=== PATIENT | female | born 1945 | race Caucasian/White ===

== ENCOUNTER 2019-10-22 11:00 | Inpatient (IN) | payer OTHER, BC ==
[2019-10-22 11:05] VITALS: BMI 24.8
[2019-10-22] MEDS ORDERED: dilTIAZem HCL 50 MG/10 ML - 10 ML VIAL IVPUSH ONE ×2 (11:23→18:57)
--- NOTE | 2019-10-22 11:23 | PDOC ---
Attending Attestation - Resident Resident Name: Ag Vargas - ED Attending Attestation I have performed the following: I have examined & evaluated the patient, The case was reviewed & discussed with the resident, I agree w/resident's findings & plan, Exceptions are as noted - HPI HPI: 74 yo F history DM, HTN, poss TIA in past presents with SOB, palpitations that started abruptly yesterday. Associated with left-sided chest pressure. Patient refused to come to ED, daughter finally brought her in. Lives at home with daughter. Normally she is independent with her ADLs, but with her symptoms, has been unable to do them. - Physicial Exam PE: GENERAL: Awake, alert, and fully oriented, +moderate respiratory distress HEAD: No signs of trauma EYES: PERRLA, EOMI, sclera anicteric, conjunctiva clear ENT: Auricles normal inspection, hearing grossly normal, nares patent, oropharynx clear without exudates. Moist mucosa NECK: Normal ROM, supple, no lymphadenopathy, JVD, or masses LUNGS: Good air entry B/L, +diffuse crackles B/L, +abdominal retractions HEART: Irregularly irregular, normal S1 and S2, no murmurs, rubs or gallops ABDOMEN: Soft, nontender, normoactive bowel sounds. No guarding, no rebound. No masses EXTREMITIES: Normal range of motion, no edema. No clubbing or cyanosis. No cords, erythema, or tenderness NEUROLOGICAL: Cranial nerves II through XII grossly intact. Normal speech. Motor and sensation intact SKIN: Warm, dry, normal turgor, no rashes or lesions noted. - Medical Decision Making 10/22/19 11:37 Pt arrives in afib with RVR, noted to have extremely elevated BP, signs of acute pulmonary edema. Pt given sublingual nitro, 10mg diltiazem IVP. Labs pending, CXR pending. Will continue to monitor. Heart Score/ECG Review - ECG Impressions Comment:: EKG read 11:15- afib with RVR, [address]/T changes. Discharge - Discharge Information Problems reviewed: Yes Clinical Impression/Diagnosis: New onset atrial fibrillation, Atrial fibrillation with rapid ventricular response, Acute pulmonary edema Anemia Qualifiers: Anemia type: unspecified type Qualified Code(s): D64.9 - Anemia, unspecified Condition: Guarded - Follow up/Referral Referrals: Maddison Vasquez MD [Primary Care Provider] - - Patient Discharge Instructions - Post Discharge Activity
[2019-10-22] MEDS ORDERED: dilTIAZem HCL 125 MG/25 ML - 25 ML VIAL ONE ×2 (11:26→19:00)
[2019-10-22] MEDS ORDERED: NITROGLYCERIN SUBLINGUAL 1/150 0.4 MG TAB ONE ×2 (11:26→19:00)
[2019-10-22] MEDS ORDERED: NITROGLYCERIN SUBLINGUAL 1/150 0.4 MG TAB SL ONE ×2 (11:34→18:57)
--- NOTE | 2019-10-22 11:40 | PDOC ---
History of Present Illness - General Chief Complaint: Shortness of Breath Stated Complaint: SOB/COUGH Time Seen by Provider: 10/22/19 11:09 - History of Present Illness Initial Comments: 10/22/19 11:39 HPI: 74 y/o F with hx of IDDM, HTN, ?TIA presenting with SOB and palpitations since yesterday. Patient reports sudden onset of palpitations with SOB and left sided chest pressure in the morning. Chest pressure was non radiating. SOB worse on exertion. She refused to come in yesterday however this morning her SOB, chest pain and palp worsened and presented to the ED. She denies MACKEY, LH, syncope, abd pain, diaphoresis, dysuria, sick contacts. PMHx: as noted above ROS: as noted SHx: Denies tobacco use; no alcohol use; no rec drugs Allergies: NKDA ROS: GENERAL/CONSTITUTIONAL: No fever or chills. No weakness. HEAD, EYES, EARS, NOSE AND THROAT: No change in vision. No ear pain or discharge. No sore throat. CARDIOVASCULAR: +chest pain and shortness of breath RESPIRATORY: No cough, wheezing, or hemoptysis. GASTROINTESTINAL: No nausea, vomiting, diarrhea or constipation. GENITOURINARY: No dysuria, frequency, or change in urination. MUSCULOSKELETAL: No joint or muscle swelling or pain. No neck or back pain. SKIN: No rash NEUROLOGIC: No headache, vertigo, loss of consciousness, or change in strength/sensation. ENDOCRINE: No increased thirst. No abnormal weight change HEMATOLOGIC/LYMPHATIC: No anemia, easy bleeding, or history of blood clots. ALLERGIC/IMMUNOLOGIC: No hives or skin allergy. PE: GENERAL: Awake, alert, and fully oriented, moderate acute distress HEAD: No signs of trauma, normocephalic, atraumatic EYES: EOMI, sclera anicteric, conjunctiva clear ENT: Auricles normal inspection, hearing grossly normal, nares patent, oropharynx clear without exudates. Moist mucosa NECK: Normal ROM, no lymphadenopathy LUNGS: increased WOB and tachypnea, symmetrical chest rise, clear to auscultation bilaterally, no wheezes, crackles or rhonchi HEART: tachycardic, irregularly irregular rhythm, no murmur, peripheral pulses 2+ and equal bilaterally. ABDOMEN: Soft, nondistended, nontender. No guarding, no rebound. No masses. No CVAT MUSCULOSKELETAL: FROM NEUROLOGICAL: Cranial nerves II through XII grossly intact. Normal speech, stable gait, no focal sensorimotor deficits SKIN: Warm, Dry, normal turgor, no rashes or lesions noted Past History - Medical History Allergies/Adverse Reactions: Allergies Allergy/AdvReac Type Severity Reaction Status Date / Time No Known Allergies Allergy Verified 10/22/19 11:05 Home Medications: Ambulatory Orders Alendronate Sodium [Fosamax] 1 tab PO WEEKLY 10/22/19 Aspirin [ASA -] 81 mg PO DAILY 10/22/19 Carvedilol 12.5 mg PO BID 10/22/19 Enalapril Maleate 5 mg PO DAILY 10/22/19 Gabapentin [Neurontin] 300 mg PO DAILY 10/22/19 Glipizide 10 mg PO DAILY 10/22/19 Insulin Detemir [Levemir Flextouch] 15 unit SQ DAILY 10/22/19 Metformin HCl [Glucophage] 1,000 mg PO DAILY 10/22/19 Ranitidine HCl 300 mg PO BID 10/22/19 Rosuvastatin [Crestor -] 20 mg PO DAILY 10/22/19 Cardiac Disorders: Yes COPD: No Diabetes: Yes HTN: Yes - Surgical History Cholecystectomy: Yes - Psycho-Social/Smoking History Smoking History: Never smoked - Substance Abuse Hx (Audit-C & DAST Scrn) How often the patient has a drink containing alcohol: Never Score: In Men: 4 or > Positive; In Women: 3 or > Positive: 0 Screen Result (Pos requires Nsg. Audit-10AR): Negative *Physical Exam - Vital Signs Last Vital Signs Temp Pulse Resp BP Pulse Ox 98.2 F 144 H 20 190/124 H 97 10/22/19 11:02 10/22/19 11:02 10/22/19 11:02 10/22/19 11:02 10/22/19 11:02 ED Treatment Course - LABORATORY CBC & Chemistry Diagram: 10/22/19 11:30 10/22/19 11:30 - RADIOLOGY Radiology Studies Ordered: Category Date Time Status CXRPORT [CHEST X-RAY PORTABLE*] [RAD] Stat Radiology 10/22/19 11:12 Ordered Medical Decision Making - Medical Decision Making 10/22/19 12:23 74 y/o F with hx of IDDM, HTN, ?TIA presenting with SOB and palpitations since yesterday. HR 140s BP 190/124, AF. PE with tachycardia, tachypnea, increased WOB. EKG with afib with rvr -cbc, cmp, mg, coags, card prof, cxr, bnp, ua -10mg dilt, sl nitro 10/22/19 12:28 HR improved to 80s and BP 140s/90s patient resp status improved Hb 9.8 down from 11.7 4 weeks ago will order FOBT will consult cards for new onset afib with rvr for further recs and AC will admit for new onset afib 10/22/19 13:[address] Brizuela discussed with Dr Brizuela but no clear etiology of thrombocytopenia; Dr Beltran recommending AC Discharge - Discharge Information Problems reviewed: Yes Clinical Impression/Diagnosis: New onset atrial fibrillation, Atrial fibrillation with rapid ventricular response, Acute pulmonary edema, Anemia Condition: Guarded - Follow up/Referral - Patient Discharge Instructions - Post Discharge Activity
[2019-10-22 11:48] LABS: BASO % 0.6 % (0-2.0); EOS % 1.5 % (0-4.5); HEMATOCRIT 29.8 % (32.4-45.2); HEMOGLOBIN 9.8 GM/dL (10.7-15.3); LYMPH % 14.7 % (8-40); MCH 28.5 pg (25.7-33.7); MCHC 32.7 g/dl (32.0-36.0); MEAN CELL VOLUME 87.1 fl (80-96); MEAN PLT VOLUME 11.6 fl (7.5-11.1); MONO % 4.4 % (3.8-10.2); NEUT % 78.8 % (42.8-82.8); PLATELET COUNT 117 K/MM3 (134-434); RBC 3.43 M/mm3 (3.60-5.2); RDW 14.7 % (11.6-15.6); WHITE BLOOD COUNT 6.1 K/mm3 (4.0-10.0)
[2019-10-22 11:56] LABS: INR 1.18 (0.83-1.09); PROTHROMBIN TIME (PATIENT) 13.9 SEC (9.7-13.0)
[2019-10-22 11:58] LABS: ACTIVATED PTT 29.9 SECONDS (25.2-36.5)
[2019-10-22] MEDS ORDERED: dilTIAZem HCL 30 MG TABLET PO ONE (12:05)
[2019-10-22] MEDS ORDERED: dilTIAZem HCL 30 MG TABLET ONE ×2 (12:08→22:26)
[2019-10-22 12:13] LABS: ALBUMIN 3.6 g/dl (3.4-5.0); BILIRUBIN,TOTAL 0.9 mg/dL (0.2-1); BLOOD UREA NITROGEN 18.2 mg/dL (7-18); CALCIUM 8.8 mg/dL (8.5-10.1); MAGNESIUM 2.3 mg/dL (1.8-2.4); POTASSIUM 3.8 mmol/L (3.5-5.1); TOT PROT 7.3 g/dl (6.4-8.2)
[2019-10-22] MEDS ORDERED: FUROSEMIDE 40 MG/4 ML INJECTABLE VIAL IVPUSH ONE ×2 (12:51→12:53)
[2019-10-22] MEDS ORDERED: CARVEDILOL 12.5 MG TABLET (FP) PO ONE (12:56)
[2019-10-22] MEDS ORDERED: FUROSEMIDE 40 MG/4 ML INJECTABLE VIAL ONE (13:40)
[2019-10-22] MEDS ORDERED: CARVEDILOL 12.5 MG TABLET (FP) ONE (13:40)
[2019-10-22 16:12] LABS: URINE APPEARANCE CLEAR; URINE BILIRUBIN NEGATIVE (NEGATIVE); URINE COLOR YELLOW; URINE GLUCOSE (UA) NEGATIVE (NEGATIVE); URINE KETONE NEGATIVE (NEGATIVE); URINE LEUK ESTERASE NEGATIVE (NEGATIVE); URINE NITRITE NEGATIVE (NEGATIVE); URINE PROTEIN NEGATIVE (NEGATIVE)
[2019-10-22] MEDS ORDERED: HEPARIN NA (PORCINE) 5,000 UNITS/ML 1ML VIAL IVPUSH ONE (22:03)
[2019-10-22] MEDS ORDERED: HEPARIN NA (PORCINE) 5,000 UNITS/ML 1ML VIAL IVPUSH PRN ×2 (22:07)
--- NOTE | 2019-10-22 22:11 | HP ---
Admitting History and Physical - Primary Care Physician PCP: Maddison Vasquez - Admission History of Present Illness: Case was d/'w Er physician/ Resident In summary== Per Er notes 74 yo F history DM, HTN, possible TIA in past presents with SOB, palpitations that started abruptly yesterday. Associated with left-sided chest pressure. Patient refused to come to ED, daughter finally brought her in. Lives at home with daughter. Normally she is independent with her ADLs, but with her symptoms, has been unable to do them. pt found to be in rapid afib/ Pulmonary Edema and uncontrolled htn . Treated with i/v cardizem/ lasix/ also started on bipapa for respiratory distress pt will be admitted in tele History Source: Medical Record - Smoking History Smoking history: Never smoked Home Medications - Allergies Allergies/Adverse Reactions: Allergies Allergy/AdvReac Type Severity Reaction Status Date / Time No Known Allergies Allergy Verified 10/22/19 11:05 - Home Medications Home Medications: Ambulatory Orders Alendronate Sodium [Fosamax] 1 tab PO WEEKLY 10/22/19 Aspirin [ASA -] 81 mg PO DAILY 10/22/19 Carvedilol 12.5 mg PO BID 10/22/19 Enalapril Maleate 5 mg PO DAILY 10/22/19 Gabapentin [Neurontin] 300 mg PO DAILY 10/22/19 Glipizide 10 mg PO DAILY 10/22/19 Insulin Detemir [Levemir Flextouch] 15 unit SQ DAILY 10/22/19 Metformin HCl [Glucophage] 1,000 mg PO DAILY 10/22/19 Ranitidine HCl 300 mg PO BID 10/22/19 Rosuvastatin [Crestor -] 20 mg PO DAILY 10/22/19 Review of Systems Findings/Remarks: see [facility] [place] Physical Examination Vital Signs: Vital Signs Temperature 98.6 F 10/22/19 18:54 Pulse Rate 83 10/22/19 19:20 Respiratory Rate 22 H 10/22/19 19:20 Blood Pressure 168/91 10/22/19 19:20 O2 Sat by Pulse Oximetry (%) 99 10/22/19 19:39 Findings/Remarks: As per ER Physicians Labs: CBC, BMP 10/22/19 11:30 10/22/19 11:30 Imaging - Results Chest X-ray: Report Reviewed EKG: Report Reviewed Problem List - Problems (1) Thrombocytopenia Code(s): D69.6 - THROMBOCYTOPENIA, UNSPECIFIED (2) Acute pulmonary edema Code(s): J81.0 - ACUTE PULMONARY EDEMA (3) Anemia Code(s): D64.9 - ANEMIA, UNSPECIFIED Qualifiers: Anemia type: unspecified type Qualified Code(s): D64.9 - Anemia, unspecified (4) Atrial fibrillation with rapid ventricular response Code(s): I48.91 - UNSPECIFIED ATRIAL FIBRILLATION (5) New onset atrial fibrillation Code(s): I48.91 - UNSPECIFIED ATRIAL FIBRILLATION Assessment/Plan Monitor on tele Cardiology consult-- Already called by ED Start on Po cardizem Will start on Heparin drip also Will follow Condition jonded
[2019-10-22] MEDS ORDERED: HEPARIN NA (PORCINE) 5,000 UNITS/ML 1ML VIAL ONE (22:26)
[2019-10-22] MEDS ORDERED: HEPARIN INFUSION - 25,000 UNITS/500 ML INFUS.BAG IVPB ONE (22:26)
[2019-10-22] MEDS: HEPARIN SOD,PORK IN 0.45% NACL 25,000 UNIT/500 ML INFUS.BAG IVPB SCH (22:43)
[2019-10-22] MEDS: INSULIN SLIDING SCALE (NOVOLOG) 1 VIAL SQ SCH (22:43)
[2019-10-22] MEDS: dilTIAZem HCL 30 MG TABLET PO SCH (22:43)
[2019-10-23] MEDS ORDERED: FUROSEMIDE 40 MG/4 ML INJECTABLE VIAL ONE ×2 (04:06→13:38)
[2019-10-23] MEDS ORDERED: dilTIAZem HCL 30 MG TABLET ONE ×2 (04:06→13:37)
[2019-10-23] MEDS: FUROSEMIDE 40 MG/4 ML INJECTABLE VIAL IVPB SCH ×2 (05:20→13:45)
[2019-10-23] MEDS: dilTIAZem HCL 30 MG TABLET PO SCH ×3 (05:20→21:37)
[2019-10-23 05:23] LABS: EOS % 2.3 % (0-4.5); HEMATOCRIT 31.3 % (32.4-45.2); HEMOGLOBIN 10.4 GM/dL (10.7-15.3); LYMPH % 25.9 % (8-40); MCH 28.8 pg (25.7-33.7); MCHC 33.3 g/dl (32.0-36.0); MEAN CELL VOLUME 86.6 fl (80-96); MEAN PLT VOLUME 11.6 fl (7.5-11.1); MONO % 4.8 % (3.8-10.2); PLATELET COUNT 143 K/MM3 (134-434); RBC 3.61 M/mm3 (3.60-5.2); RDW 14.9 % (11.6-15.6); WHITE BLOOD COUNT 6.4 K/mm3 (4.0-10.0)
[2019-10-23 05:55] LABS: POTASSIUM 3.6 mmol/L (3.5-5.1)
[2019-10-23 06:35] LABS: ALBUMIN 3.5 g/dl (3.4-5.0); BILIRUBIN,TOTAL 0.7 mg/dL (0.2-1); CALCIUM 8.7 mg/dL (8.5-10.1); CREATININE 1.2 mg/dL (0.55-1.3); MAGNESIUM 2.1 mg/dL (1.8-2.4); TOT PROT 7.2 g/dl (6.4-8.2)
[2019-10-23] MEDS: INSULIN SLIDING SCALE (NOVOLOG) 1 VIAL SQ SCH ×4 (08:09→21:42)
[2019-10-23] MEDS ORDERED: LISINOPRIL 5 MG TABLET (FP) ONE (08:29)
[2019-10-23] MEDS: LISINOPRIL 10 MG TABLET (FP) PO SCH (09:00)
--- NOTE | 2019-10-23 09:04 | CON.CARD ---
Consult Consult Specialty:: Cardiology Referred by:: Juan Brizuela MD Reason for Consultation:: Rapid afib, CHF - History of Present Illness Chief Complaint: Chest pain, dyspnea, cough History of Present Illness: HPI: 74 y/o F with hx of IDDM, HTN, ?TIA presenting with SOB and palpitations since yesterday. Patient reports sudden onset of palpitations with SOB and left sided chest pressure in the morning. Chest pressure was non radiating. SOB worse on exertion. She refused to come in yesterday however this morning her SOB, chest pain and palp worsened and presented to the ED. She denies MACKEY, LH, syncope, abd pain, diaphoresis, dysuria, sick contacts. Last office visit May 2018. PMHx: as noted above ROS: as noted SHx: Denies tobacco use; no alcohol use; no rec drugs Allergies: NKDA - History Source History Provided By: Patient Limitations to Obtaining History: No Limitations - Smoking History Smoking history: Never smoked Home Medications - Allergies Allergies/Adverse Reactions: Allergies Allergy/AdvReac Type Severity Reaction Status Date / Time No Known Allergies Allergy Verified 10/22/19 11:05 - Home Medications Home Medications: Ambulatory Orders Alendronate Sodium [Fosamax] 1 tab PO WEEKLY 10/22/19 Aspirin [ASA -] 81 mg PO DAILY 10/22/19 Carvedilol 12.5 mg PO BID 10/22/19 Enalapril Maleate 5 mg PO DAILY 10/22/19 Gabapentin [Neurontin] 300 mg PO DAILY 10/22/19 Glipizide 10 mg PO DAILY 10/22/19 Insulin Detemir [Levemir Flextouch] 15 unit SQ DAILY 10/22/19 Metformin HCl [Glucophage] 1,000 mg PO DAILY 10/22/19 Ranitidine HCl 300 mg PO BID 10/22/19 Rosuvastatin [Crestor -] 20 mg PO DAILY 10/22/19 Vital Signs: Vital Signs Temperature 98.6 F 10/22/19 18:54 Pulse Rate 91 H 10/23/19 07:59 Respiratory Rate 22 H 10/23/19 07:59 Blood Pressure 181/86 H 10/23/19 07:59 O2 Sat by Pulse Oximetry (%) 100 10/23/19 08:49 - Other Data Labs, Other Data: CBC, BMP 10/23/19 05:11 10/23/19 05:11 INR, PTT INR 1.18 (0.83-1.09) H 10/22/19 11:30 Troponin, BNP 10/22/19 10/23/19 11:30 05:11 Troponin I 0.06 H 0.05 B-Natriuretic Peptide 3653.0 H Troponin, BNP 10/22/19 10/23/19 11:30 05:11 Troponin I 0.06 H 0.05 B-Natriuretic Peptide 3653.0 H Imaging - Results Chest X-ray: Report Reviewed (Congestion) Assessment/Plan 10/22/19 11:37 Pt arrives in afib with RVR, noted to have extremely elevated BP, signs of acute pulmonary edema. Pt given sublingual nitro, 10mg diltiazem IVP. Labs pending, CXR pending. Will continue to monitor. Heart Score/ECG Review - ECG Impressions Comment:: EKG read 11:15- afib with RVR, [address]/T changes. Alendronate Sodium [Fosamax] 1 tab PO WEEKLY 10/22/19 Aspirin [ASA -] 81 mg PO DAILY 10/22/19 Carvedilol 12.5 mg PO BID 10/22/19 Enalapril Maleate 5 mg PO DAILY 10/22/19 Gabapentin [Neurontin] 300 mg PO DAILY 10/22/19 Glipizide 10 mg PO DAILY 10/22/19 Insulin Detemir [Levemir Flextouch] 15 unit SQ DAILY 10/22/19 Metformin HCl [Glucophage] 1,000 mg PO DAILY 10/22/19 Ranitidine HCl 300 mg PO BID 10/22/19 Rosuvastatin [Crestor -] 20 mg PO DAILY 10/22/19
[2019-10-23] MEDS ORDERED: CARVEDILOL 12.5 MG TABLET (FP) ONE (10:02)
[2019-10-23] MEDS: INSULIN (LEVEMIR) 100 UNITS/ML UNITS SQ SCH (10:07)
[2019-10-23] MEDS: CARVEDILOL 12.5 MG TABLET (FP) PO SCH ×2 (10:07→21:37)
--- NOTE | 2019-10-23 11:19 | EKG ---
Test Reason : Blood Pressure : / mmHG Vent. Rate : 139 BPM Atrial Rate : 147 BPM P-R Int : 000 ms QRS Dur : 096 ms QT Int : 336 ms P-R-T Axes : 000 049 227 degrees QTc Int : 511 ms ATRIAL FIBRILLATION WITH RAPID VENTRICULAR RESPONSE NONSPECIFIC ST AND T WAVE ABNORMALITY ABNORMAL ECG NO PREVIOUS ECGS AVAILABLE Confirmed by MINDY PACHECO MD ([id number]) on 10/23/2019 11:19:38 AM Referred By: Confirmed By:MINDY PACHECO MD
--- NOTE | 2019-10-23 12:18 | PN ---
Progress Note, Physician History of Present Illness: Pt seen/ examined in Er Chart reviewed Events noted I started on BB also this morning as BP was very high last night- Pt feels much better On N/C oxygen now On questioning- pt reports h/o chf/ Pul. Edema few yrs ago in P.R -- says was hospitalized for 7 days denies CP - Current Medication List Current Medications: Active Medications Carvedilol (Coreg -) 12.5 mg PO BID [facility] Last Admin: 10/23/19 10:07 Dose: 12.5 mg Documented by: Diltiazem HCl (Cardizem -) 30 mg PO TID [facility] Last Admin: 10/23/19 05:20 Dose: 30 mg Documented by: Furosemide (Lasix Injection -) 40 mg IVPB BID@0600,1400 [facility] Last Admin: 10/23/19 05:20 Dose: 40 mg Documented by: Heparin Sodium (Porcine) (Heparin -) 1,000 unit IVPUSH PRN PRN PRN Reason: Heparin Heparin Sodium (Porcine) (Heparin -) 5,000 unit IVPUSH PRN PRN PRN Reason: Heparin HEPARIN SOD,PORK IN 0.45% NACL (Heparin-1/2ns 25,000 Units/500) 25,000 unit in 500 mls @ 16 mls/hr IVPB TITR [facility]; Protocol Last Admin: 10/22/19 22:43 Dose: 800 units/hr, 16 mls/hr Documented by: Insulin Aspart (Novolog Vial Sliding Scale -) 1 vial SQ ACHS [facility]; Protocol Last Admin: 10/23/19 12:09 Dose: 2 unit Documented by: Insulin Detemir (Levemir Vial) 15 units SQ DAILY [facility] Last Admin: 10/23/19 10:07 Dose: 15 unit Documented by: Lisinopril (Prinivil) 10 mg PO DAILY [facility] Last Admin: 10/23/19 09:00 Dose: 10 mg Documented by: Rosuvastatin Calcium (Crestor -) 20 mg PO [facility] - Objective Vital Signs: Vital Signs Temperature 98.6 F 10/22/19 18:54 Pulse Rate 91 H 10/23/19 09:55 Respiratory Rate 20 10/23/19 09:55 Blood Pressure 165/90 10/23/19 09:55 O2 Sat by Pulse Oximetry (%) 100 10/23/19 09:55 Constitutional: Yes: No Distress, Calm Neck: Yes: Supple Cardiovascular: Yes: Pulse Irregular Respiratory: Yes: Diminished Gastrointestinal: Yes: Soft Edema: No Neurological: Yes: Alert Labs: CBC, BMP 10/23/19 05:11 10/23/19 05:11 INR, PTT INR 1.18 (0.83-1.09) H 10/22/19 11:30 Problem List - Problems (1) Acute pulmonary edema Code(s): J81.0 - ACUTE PULMONARY EDEMA (2) Thrombocytopenia Code(s): D69.6 - THROMBOCYTOPENIA, UNSPECIFIED (3) Anemia Code(s): D64.9 - ANEMIA, UNSPECIFIED Qualifiers: Anemia type: unspecified type Qualified Code(s): D64.9 - Anemia, unspecified (4) Atrial fibrillation with rapid ventricular response Code(s): I48.91 - UNSPECIFIED ATRIAL FIBRILLATION (5) New onset atrial fibrillation Code(s): I48.91 - UNSPECIFIED ATRIAL FIBRILLATION Assessment/Plan clinically better continue present care echo cardiology on case. monitor bp condition better but gaurded Heparin drip-- Monitor Will follow
[2019-10-23] MEDS ORDERED: PT OWN MED DRAWER 7, Y5N ONE ×2 (14:23→21:41)
--- NOTE | 2019-10-23 15:20 | ECHO ---
Name: KAMILLA AKERSMARIA TERESAJose Exam:Adult Echocardiogram Study Date: 10/23/2019 11:22 AM Age: 74 yrs Reason For Study: CHF Height: 62 in Weight: 136 lb BSA: 1.6 m2 MMode/2D Measurements & Calculations IVSd: 1.3 cm Ao root diam: 2.8 cm LVIDd: 4.9 cm LA dimension: 3.4 cm LVIDs: 2.6 cm LVPWd: 0.90 cm EDV(Teich): 112.1 ml LVOT diam: 2.0 cm ESV(Teich): 24.2 ml LAV (MOD-bp): 68.5 ml Doppler Measurements & Calculations MV E max rony: 141.0 cm/sec Ao V2 max: 113.6 cm/sec MV A max rony: 51.4 cm/sec Ao max P.2 mmHg MV E/A: 2.7 MV dec time: 0.10 sec ROSA(V,D): 1.7 cm2 LV V1 max P.5 mmHg MR max rony: 490.0 cm/sec LV V1 max: 61.3 cm/sec MR max P.4 mmHg TR max rony: 328.1 cm/sec PA V2 max: 90.2 cm/sec TR max P.3 mmHg PA max P.3 mmHg Med Peak E' Rony: 5.4 cm/sec PI Vmax: 136.2 cm/sec Med E/e': 25.9 Lat Peak E' Rony: 6.6 cm/sec Lat E/e': 21.2 Procedure A complete two-dimensional transthoracic echocardiogram was performed (2D, M-mode, Doppler and color flow Doppler). Left Ventricle The left ventricle is normal in size. There is mild concentric left ventricular hypertrophy. Left nichol tricular systolic function is normal. Ejection Fraction = 55-60%. No regional wall motion abnormalities noted. Right Ventricle The right ventricle is normal size. The right ventricular systolic function is normal. Atria The left atrium is mildly dilated. Right atrial size is normal. Mitral Valve There is mild mitral annular calcification. There is mild to moderate mitral regurgitation. Tricuspid Valve The tricuspid valve is normal in structure and function. There is mild to moderate tricuspid regurgit ation. PASP is at least 55 mmHg if RA pressure is assumed 3 mmHg. Aortic Valve There is mild aortic sclerosis.;. No aortic regurgitation is present. Pulmonic Valve The pulmonic valve is not well visualized. Great Vessels The aortic root is normal size. Pericardium/Pleura There is no pericardial effusion. Interpretation Summary The left ventricle is normal in size. There is mild concentric left ventricular hypertrophy. No regional wall motion abnormalities noted. Left ventricular systolic function is normal. Ejection Fraction = 55-60%. The left atrium is mildly dilated. There is mild mitral annular calcification. There is mild to moderate mitral regurgitation. There is mild to moderate tricuspid regurgitation. PASP is at least 55 mmHg if RA pressure is assumed 3 mmHg There is mild aortic sclerosis. There is no pericardial effusion. Vern Smith MD 10/23/2019 03:19 PM
--- NOTE | 2019-10-23 16:07 | CON.CARD ---
Consult Consult Specialty:: Cardiology - History of Present Illness History of Present Illness: 74 yo F history DM, HTN, possible TIA in past presents with SOB, palpitations that started abruptly yesterday. Associated with left-sided chest pressure. Patient refused to come to ED, daughter finally brought her in. Lives at home with daughter. Normally she is independent with her ADLs, but with her symptoms, has been unable to do them. pt found to be in rapid afib/ Pulmonary Edema and uncontrolled htn . Treated with i/v cardizem/ lasix/ also started on bipapa for respiratory distress pt will be admitted in tele - History Source History Provided By: Patient, Medical Record - Past Medical History Cardio/Vascular: Yes: AFIB, HTN - Smoking History Smoking history: Never smoked Home Medications - Allergies Allergies/Adverse Reactions: Allergies Allergy/AdvReac Type Severity Reaction Status Date / Time No Known Allergies Allergy Verified 10/22/19 11:05 - Home Medications Home Medications: Ambulatory Orders Alendronate Sodium [Fosamax] 1 tab PO WEEKLY 10/22/19 Aspirin [ASA -] 81 mg PO DAILY 10/22/19 Carvedilol 12.5 mg PO BID 10/22/19 Enalapril Maleate 5 mg PO DAILY 10/22/19 Gabapentin [Neurontin] 300 mg PO DAILY 10/22/19 Glipizide 10 mg PO DAILY 10/22/19 Insulin Detemir [Levemir Flextouch] 15 unit SQ DAILY 10/22/19 Metformin HCl [Glucophage] 1,000 mg PO DAILY 10/22/19 Ranitidine HCl 300 mg PO BID 10/22/19 Rosuvastatin [Crestor -] 20 mg PO DAILY 10/22/19 Review of Systems - Review of Systems Constitutional: reports: No Symptoms Eyes: reports: No Symptoms HENT: reports: No Symptoms Neck: reports: No Symptoms Cardiovascular: reports: Palpitations Respiratory: reports: SOB, SOB on Exertion Gastrointestinal: reports: No Symptoms Genitourinary: reports: No Symptoms Breasts: reports: No Symptoms Reported Musculoskeletal: reports: No Symptoms Integumentary: reports: No Symptoms Neurological: reports: No Symptoms Endocrine: reports: No Symptoms Hematology/Lymphatic: reports: No Symptoms Psychiatric: reports: No Symptoms Vital Signs: Vital Signs Temperature 98.2 F 10/23/19 15:00 Pulse Rate 100 H 10/23/19 15:00 Respiratory Rate 20 08/31/20 15:00 Blood Pressure 145/79 10/23/19 15:33 O2 Sat by Pulse Oximetry (%) 93 L 10/23/19 15:00 Constitutional: Yes: Well Nourished, No Distress, Calm Eyes: Yes: WNL, Conjunctiva Clear, EOM Intact HENT: Yes: WNL, Atraumatic, Normocephalic Neck: Yes: WNL, Supple, Trachea Midline Respiratory: Yes: WNL, Regular, CTA Bilaterally Gastrointestinal: Yes: WNL, Normal Bowel Sounds Renal/: Yes: WNL Cardiovascular: Yes: WNL, Regular Rate and Rhythm Heart Sounds: Yes: S1, S2 Musculoskeletal: Yes: WNL Extremities: Yes: WNL Integumentary: Yes: WNL Neurological: Yes: WNL, Alert, Oriented ...Motor Strength: WNL Psychiatric: Yes: WNL, Alert, Oriented - Other Data Labs, Other Data: CBC, BMP 10/23/19 05:11 10/23/19 05:11 INR, PTT INR 1.18 (0.83-1.09) H 10/22/19 11:30 Troponin, BNP 10/23/19 05:11 Troponin I 0.05 Troponin, BNP 10/23/19 05:11 Troponin I 0.05 Imaging - Results Chest X-ray: Image Reviewed (chf) EKG: Image Reviewed (af rvr) Problem List - Problems (1) Acute pulmonary edema Code(s): J81.0 - ACUTE PULMONARY EDEMA (2) Anemia Code(s): D64.9 - ANEMIA, UNSPECIFIED Qualifiers: Anemia type: unspecified type Qualified Code(s): D64.9 - Anemia, unspecified (3) Atrial fibrillation with rapid ventricular response Code(s): I48.91 - UNSPECIFIED ATRIAL FIBRILLATION (4) New onset atrial fibrillation Code(s): I48.91 - UNSPECIFIED ATRIAL FIBRILLATION (5) Thrombocytopenia Code(s): D69.6 - THROMBOCYTOPENIA, UNSPECIFIED Assessment/Plan Imp; AF RVR CHF Acute pulmonary edema HTN DM Pulmonary HTN Nl EF mild to moderate MR Plan; IV lasix AC with IV Heparin until cardiac w/u is done than NOACs. rate control bb and Cardizem MIBI stress test when stable.
[2019-10-23] MEDS: ROSUVASTATIN CA 20 MG TABLET (FP) PO SCH (21:37)
[2019-10-23] MEDS: HEPARIN SOD,PORK IN 0.45% NACL 25,000 UNIT/500 ML INFUS.BAG IVPB SCH (22:59)
[2019-10-24] MEDS: FUROSEMIDE 40 MG/4 ML INJECTABLE VIAL IVPB SCH ×2 (05:49→14:04)
[2019-10-24] MEDS: dilTIAZem HCL 30 MG TABLET PO SCH ×3 (05:49→21:08)
[2019-10-24] MEDS: INSULIN SLIDING SCALE (NOVOLOG) 1 VIAL SQ SCH ×4 (06:11→21:09)
[2019-10-24 07:22] LABS: HEMATOCRIT 29.7 % (32.4-45.2); HEMOGLOBIN 9.9 GM/dL (10.7-15.3); MCH 28.8 pg (25.7-33.7); MCHC 33.4 g/dl (32.0-36.0); MEAN CELL VOLUME 86.3 fl (80-96); MEAN PLT VOLUME 11.9 fl (7.5-11.1); PLATELET COUNT 146 K/MM3 (134-434); RBC 3.45 M/mm3 (3.60-5.2); RDW 14.6 % (11.6-15.6)
[2019-10-24] MEDS: LISINOPRIL 10 MG TABLET (FP) PO SCH (09:09)
[2019-10-24] MEDS: INSULIN (LEVEMIR) 100 UNITS/ML UNITS SQ SCH (09:10)
[2019-10-24] MEDS: CARVEDILOL 12.5 MG TABLET (FP) PO SCH ×2 (09:10→21:08)
--- NOTE | 2019-10-24 10:28 | PN ---
Progress Note, Physician Chief Complaint: Feels better Not in distress History of Present Illness: Patient was seen by Dr Fernandez yesterday but found that patient had seen Dr/ Mikal Hauser in the office. Patient was seen and examined. Awake and alert. Chart was reviewed - Current Medication List Current Medications: Active Medications Carvedilol (Coreg -) 12.5 mg PO BID [facility] Last Admin: 10/24/19 09:10 Dose: 12.5 mg Documented by: Diltiazem HCl (Cardizem -) 30 mg PO TID [facility] Last Admin: 10/24/19 05:49 Dose: 30 mg Documented by: Furosemide (Lasix Injection -) 40 mg IVPB BID@0600,1400 [facility] Last Admin: 10/24/19 05:49 Dose: 40 mg Documented by: Heparin Sodium (Porcine) (Heparin -) 1,000 unit IVPUSH PRN PRN PRN Reason: Heparin Heparin Sodium (Porcine) (Heparin -) 5,000 unit IVPUSH PRN PRN PRN Reason: Heparin HEPARIN SOD,PORK IN 0.45% NACL (Heparin-1/2ns 25,000 Units/500) 25,000 unit in 500 mls @ 16 mls/hr IVPB TITR [facility]; Protocol Last Admin: 10/23/19 22:59 Dose: 800 units/hr, 16 mls/hr Documented by: Insulin Aspart (Novolog Vial Sliding Scale -) 1 vial SQ ACHS [facility]; Protocol Last Admin: 10/24/19 06:11 Dose: Not Given Documented by: Insulin Detemir (Levemir Vial) 15 units SQ DAILY [facility] Last Admin: 10/24/19 09:10 Dose: 15 unit Documented by: Lisinopril (Prinivil) 10 mg PO DAILY [facility] Last Admin: 10/24/19 09:09 Dose: 10 mg Documented by: Rosuvastatin Calcium (Crestor -) 20 mg PO HS [facility] Last Admin: 10/23/19 21:37 Dose: 20 mg Documented by: - Objective Vital Signs: Vital Signs Temperature 97.9 F 10/24/19 09:13 Pulse Rate 92 H 10/24/19 09:13 Respiratory Rate 20 10/24/19 09:13 Blood Pressure 147/91 10/24/19 09:13 O2 Sat by Pulse Oximetry (%) 100 10/24/19 09:13 Eyes: Yes: PERRL HENT: Yes: Atraumatic Neck: Yes: Supple Cardiovascular: Yes: Pulse Irregular, S1, S2 Respiratory: Yes: Diminished Gastrointestinal: Yes: Normal Bowel Sounds, Soft. No: Tenderness Edema: No Additional Findings/Remarks: - Review of Systems Constitutional: denies: Chills, Fever Cardiovascular: denies Palpitations, (+) Shortness of Breath. denies: Chest Pain Respiratory: reports: SOB. denies: Cough, Hemoptysis, Orthopnea, PND, SOB on Exertion, Wheezing Gastrointestinal: denies: Abdominal Pain, Constipation, Diarrhea, Melena, Nausea, Rectal Bleeding, Vomiting Genitourinary: denies: Dysuria, Hematuria Neurological: denies: Dizziness, Headache, Seizure, Syncope Labs: CBC, BMP 10/24/19 05:54 10/23/19 05:11 Problem List - Problems (1) HTN (hypertension) Code(s): I10 - ESSENTIAL (PRIMARY) HYPERTENSION (2) Hypercholesterolemia Code(s): E78.00 - PURE HYPERCHOLESTEROLEMIA, UNSPECIFIED (3) Pulmonary HTN Code(s): I27.20 - PULMONARY HYPERTENSION, UNSPECIFIED (4) Anemia Code(s): D64.9 - ANEMIA, UNSPECIFIED Qualifiers: Anemia type: unspecified type Qualified Code(s): D64.9 - Anemia, unspecified (5) New onset atrial fibrillation Code(s): I48.91 - UNSPECIFIED ATRIAL FIBRILLATION Assessment/Plan 1. Atrial fibrillation, ? new onset [id number] score of 5 2. HTN 3. DM 4. 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 Acute on chronic LV failure ?diastolic PLAN: 1. Currently on Heparin protocol, but may discontinue and start Eliquis 5 mg BID 2. Continue Carvedilol 12.5 mg BID and Prinivil 10 mg QD 3. Cardizem 30 mg TID for added rate control 4. Rosuvastatin 20 mg QHS 5. Echocardiography result noted 6. Furosemide 40 mg IV BID and monitor renal function and electrolytes 7. If patient remains in AF, may consider LASHAWN guided synchronized cardioversion at a later time 8. Further cardiac work up can be done as outpatient Vern Smith MD
--- NOTE | 2019-10-24 10:38 | EKG ---
Test Reason : Blood Pressure : / mmHG Vent. Rate : 088 BPM Atrial Rate : 107 BPM P-R Int : 000 ms QRS Dur : 102 ms QT Int : 406 ms P-R-T Axes : 000 006 134 degrees QTc Int : 491 ms POOR DATA QUALITY, INTERPRETATION MAY BE ADVERSELY AFFECTED ATRIAL FIBRILLATION ABNORMAL ECG WHEN COMPARED WITH ECG OF 22-OCT-2019 11:11, VENT. RATE HAS DECREASED BY [address] NO LONGER DEPRESSED IN INFERIOR LEADS NONSPECIFIC T WAVE ABNORMALITY, IMPROVED IN INFERIOR LEADS T WAVE INVERSION NOW EVIDENT IN LATERAL LEADS Confirmed by Carlos Alberto Ash MD ([id number]) on 10/24/2019 10:37:57 AM Referred By: HOLLY FUNEZ Confirmed By:Carlos Alberto Ash MD
[2019-10-24] MEDS: APIXABAN 5 MG TABLET PO SCH ×2 (11:55→21:09)
[2019-10-24] MEDS ORDERED: INSULIN (LEVEMIR) 100 UNITS/ML UNITS SQ SCH ×2 (13:36→13:45)
--- NOTE | 2019-10-24 14:28 | PN ---
Progress Note (short form) - Note Progress Note: events noted no chest pain no sob Vital Signs - 24 hr 10/23/19 10/23/19 10/23/19 14:40 15:00 15:33 Temperature 98.2 F Pulse Rate 100 H Respiratory 20 Rate Blood Pressure 164/101 H 145/79 O2 Sat by Pulse 98 93 L Oximetry (%) 10/23/19 10/23/19 10/23/19 17:00 18:00 20:19 Temperature 98.2 F Pulse Rate 97 H Respiratory 20 19 Rate Blood Pressure 168/93 O2 Sat by Pulse 96 98 97 Oximetry (%) 10/23/19 10/24/19 10/24/19 21:00 02:00 06:00 Temperature 98.3 F 97.5 F L 97.7 F Pulse Rate 83 72 87 Respiratory 16 18 18 Rate Blood Pressure 157/80 153/88 147/90 O2 Sat by Pulse 100 100 100 Oximetry (%) 10/24/19 10/24/19 08:30 09:13 Temperature 97.9 F Pulse Rate 92 H Respiratory 18 20 Rate Blood Pressure 147/91 O2 Sat by Pulse 100 Oximetry (%) Current Medications Generic Name Dose Route Start Last Admin Trade Name Freq PRN Reason Stop Dose Admin Apixaban 5 mg 10/24/19 11:15 10/24/19 11:55 Eliquis - PO 5 mg BID [facility] Administration Carvedilol 12.5 mg 10/23/19 10:00 10/24/19 09:10 Coreg - PO 12.5 mg BID GE[facility]NA Administration Diltiazem HCl 30 mg 10/22/19 22:15 10/24/19 14:08 Cardizem - PO 30 mg TID [facility] Administration Furosemide 40 mg 10/23/19 06:00 10/24/19 14:04 Lasix Injection - IVPB 40 mg BID@0600,1400 [facility] Administration Insulin Aspart 1 vial 10/22/19 22:00 10/24/19 11:55 Novolog Vial Sliding Scale - SQ 4 unit ACHS ON LICENSE OF [facility] Administration Protocol Insulin Detemir 16 units 10/25/19 10:00 Levemir Vial SQ DAILY [facility] Lisinopril 10 mg 10/23/19 10:00 10/24/19 09:09 Prinivil PO 10 mg DAILY [facility] Administration Rosuvastatin Calcium 20 mg 10/23/19 22:00 10/23/19 21:37 Crestor - PO 20 mg HS [facility] Administration Laboratory Results - last 24 hr 10/23/19 10/24/19 10/24/19 21:39 05:48 05:54 WBC 5.0 RBC 3.45 L Hgb 9.9 L Hct 29.7 L MCV 86.3 MCH 28.8 MCHC 33.4 RDW 14.6 Plt Count 146 MPV 11.9 H PTT (Actin FS) POC Glucometer 114 113 10/24/19 10/24/19 10/24/19 05:54 09:08 11:52 WBC RBC Hgb Hct MCV MCH MCHC RDW Plt Count MPV PTT (Actin FS) 56.5 H POC Glucometer 158 227 S1 S2 Irregular Lungs decreased Abd- soft, NT no edema PLAN off heparin gtt On eliquis now continue with Lasix BID check renal function rate control with coreg Problem List - Problems (1) Acute pulmonary edema Code(s): J81.0 - ACUTE PULMONARY EDEMA (2) Atrial fibrillation with rapid ventricular response Code(s): I48.91 - UNSPECIFIED ATRIAL FIBRILLATION (3) HTN (hypertension) Code(s): I10 - ESSENTIAL (PRIMARY) HYPERTENSION (4) Hypercholesterolemia Code(s): E78.00 - PURE HYPERCHOLESTEROLEMIA, UNSPECIFIED (5) Pulmonary HTN Code(s): I27.20 - PULMONARY HYPERTENSION, UNSPECIFIED
[2019-10-24] MEDS: ROSUVASTATIN CA 20 MG TABLET (FP) PO SCH (21:08)
[2019-10-25] MEDS: dilTIAZem HCL 30 MG TABLET PO SCH (06:27)
[2019-10-25] MEDS: FUROSEMIDE 40 MG/4 ML INJECTABLE VIAL IVPB SCH ×2 (06:28→14:34)
[2019-10-25] MEDS: INSULIN SLIDING SCALE (NOVOLOG) 1 VIAL SQ SCH ×4 (06:50→21:21)
[2019-10-25 08:08] LABS: HEMATOCRIT 30.1 % (32.4-45.2); MCH 28.2 pg (25.7-33.7); MCHC 33.2 g/dl (32.0-36.0); MEAN CELL VOLUME 85.2 fl (80-96); PLATELET COUNT 157 K/MM3 (134-434); RBC 3.54 M/mm3 (3.60-5.2); RDW 14.6 % (11.6-15.6); WHITE BLOOD COUNT 6.2 K/mm3 (4.0-10.0)
[2019-10-25 08:34] LABS: BLOOD UREA NITROGEN 19.4 mg/dL (7-18); CALCIUM 8.8 mg/dL (8.5-10.1); POTASSIUM 3.2 mmol/L (3.5-5.1)
[2019-10-25] MEDS: APIXABAN 5 MG TABLET PO SCH ×2 (10:00→21:21)
[2019-10-25] MEDS: CARVEDILOL 12.5 MG TABLET (FP) PO SCH ×2 (10:00→21:21)
[2019-10-25] MEDS: LISINOPRIL 10 MG TABLET (FP) PO SCH (10:00)
--- NOTE | 2019-10-25 10:05 | PN ---
Progress Note, Physician History of Present Illness: Dyspnea, chest pressure and palpitations resolving with rate control and diuresis. - Current Medication List Current Medications: Active Medications Apixaban (Eliquis -) 5 mg PO BID [facility] Last Admin: 10/25/19 10:00 Dose: 5 mg Documented by: Carvedilol (Coreg -) 12.5 mg PO BID [facility] Last Admin: 10/25/19 10:00 Dose: 12.5 mg Documented by: Diltiazem HCl (Cardizem -) 30 mg PO TID [facility] Last Admin: 10/25/19 06:27 Dose: 30 mg Documented by: Furosemide (Lasix Injection -) 40 mg IVPB BID@0600,1400 [facility] Last Admin: 10/25/19 06:28 Dose: 40 mg Documented by: Insulin Aspart (Novolog Vial Sliding Scale -) 1 vial SQ ACHS [facility]; Protocol Last Admin: 10/25/19 06:50 Dose: Not Given Documented by: Insulin Detemir (Levemir Vial) 16 units SQ DAILY [facility] Lisinopril (Prinivil) 10 mg PO DAILY [facility] Last Admin: 10/25/19 10:00 Dose: 10 mg Documented by: Rosuvastatin Calcium (Crestor -) 20 mg PO HS [facility] Last Admin: 10/24/19 21:08 Dose: 20 mg Documented by: - Objective Vital Signs: Vital Signs Temperature 97.7 F 10/25/19 06:00 Pulse Rate 83 10/25/19 06:00 Respiratory Rate 18 10/25/19 06:00 Blood Pressure 157/96 10/25/19 06:00 O2 Sat by Pulse Oximetry (%) 98 10/25/19 05:12 Constitutional: Yes: No Distress, Calm Neck: Yes: Supple Cardiovascular: Yes: Pulse Irregular Respiratory: Yes: Regular, Diminished, On Nasal O2 Gastrointestinal: Yes: Normal Bowel Sounds, Soft Edema: No Labs: CBC, BMP 10/25/19 06:45 10/25/19 06:45 INR, PTT INR 1.18 (0.83-1.09) H 10/22/19 11:30 - ....Imaging Chest X-ray: Report Reviewed (CHF) EKG: Report Reviewed (Afib @ [address]-T changes Tele: Rate-controlled afib) Assessment/Plan Problem List - Problems (1) HTN (hypertension) Code(s): I10 - ESSENTIAL (PRIMARY) HYPERTENSION (2) Hypercholesterolemia Code(s): E78.00 - PURE HYPERCHOLESTEROLEMIA, UNSPECIFIED (3) Pulmonary HTN Code(s): I27.20 - PULMONARY HYPERTENSION, UNSPECIFIED (4) Anemia Code(s): D64.9 - ANEMIA, UNSPECIFIED Qualifiers: Anemia type: unspecified type Qualified Code(s): D64.9 - Anemia, unspecified (5) New onset atrial fibrillation Code(s): I48.91 - UNSPECIFIED ATRIAL FIBRILLATION Assessment/Plan 10/24/2019 Echo: Normal LV size with mild cLVH, normal LVEF 55-60%, mild LAE, mild-mod TR RVSP 55 mmHg 1. Persistet atrial fibrillation, newly diagnosed [id number] score of 5 2. HTN 3. DM 4. 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 Acute on chronic diastolic LV failure PLAN: 1. Continue Eliquis 5 mg BID 2. Increase Carvedilol 25 mg BID and lisinopril 10 mg QD with uptitration as tolerated 3. D/c Cardizem 30 mg TID 4. Rosuvastatin 20 mg QHS 5. Echocardiography result noted 6. Decrease Furosemide 40 mg IV QD and monitor renal function and electrolytes, replete K 7. If patient remains in AF, may consider synchronized cardioversion as outpatient 8. Lexiscan Myoview once euvolemic and rate-controlled
[2019-10-25] MEDS: INSULIN (LEVEMIR) 100 UNITS/ML UNITS SQ SCH (11:30)
[2019-10-25] MEDS ORDERED: POTASSIUM CHLORIDE ORAL LIQUID 20 MEQ/15 ML PO ONE (12:30)
--- NOTE | 2019-10-25 12:35 | PN ---
Progress Note (short form) - Note Progress Note: events noted no chest pain no sob feels well Vital Signs - 24 hr 10/24/19 10/24/19 10/24/19 13:00 18:00 21:00 Temperature 98.5 F 98.3 F 98.2 F Pulse Rate 105 H 76 90 Respiratory 20 18 18 Rate Blood Pressure 140/67 158/82 167/89 O2 Sat by Pulse 100 98 Oximetry (%) 10/25/19 10/25/19 10/25/19 00:56 02:00 05:12 Temperature 97.9 F Pulse Rate 79 Respiratory 18 Rate Blood Pressure 148/76 O2 Sat by Pulse 98 98 Oximetry (%) 10/25/19 06:00 Temperature 97.7 F Pulse Rate 83 Respiratory 18 Rate Blood Pressure 157/96 O2 Sat by Pulse Oximetry (%) Current Medications Generic Name Dose Route Start Last Admin Trade Name Freq PRN Reason Stop Dose Admin Apixaban 5 mg 10/24/19 11:15 10/25/19 10:00 Eliquis - PO 5 mg BID [facility] Administration Carvedilol 25 mg 10/25/19 12:16 Coreg - PO BID [facility] Furosemide 40 mg 10/23/19 06:00 10/25/19 06:28 Lasix Injection - IVPB 10/26/19 06:00 40 mg BID@0600,1400 [facility] Administration Furosemide 40 mg 10/26/19 10:00 Lasix Injection - IVPB 10/26/19 12:00 DAILY [facility] Insulin Aspart 1 vial 10/22/19 22:00 10/25/19 12:02 Novolog Vial Sliding Scale - SQ 8 unit ACHS [facility] Administration Protocol Insulin Detemir 16 units 10/25/19 10:00 10/25/19 11:30 Levemir Vial SQ 16 units DAILY [facility] Administration Lisinopril 10 mg 10/23/19 10:00 10/25/19 10:00 Prinivil PO 10 mg DAILY [facility] Administration Rosuvastatin Calcium 20 mg 10/23/19 22:00 10/24/19 21:08 Crestor - PO 20 mg HS [facility] Administration Laboratory Results - last 24 hr 10/24/19 10/25/19 10/25/19 21:07 06:11 06:45 WBC 6.2 RBC 3.54 L Hgb 10.0 L Hct 30.1 L MCV 85.2 MCH 28.2 MCHC 33.2 RDW 14.6 Plt Count 157 MPV 11.0 PTT (Actin FS) Sodium Potassium Chloride Carbon Dioxide Anion Gap BUN Creatinine Est GFR (CKD-EPI)AfAm Est GFR (CKD-EPI)NonAf POC Glucometer 195 136 Random Glucose Calcium 10/25/19 10/25/19 06:45 06:45 WBC RBC Hgb Hct MCV MCH MCHC RDW Plt Count MPV PTT (Actin FS) 31.7 Sodium 144 Potassium 3.2 L Chloride 107 Carbon Dioxide 31 Anion Gap 6 L BUN 19.4 H Creatinine 1.0 Est GFR (CKD-EPI)AfAm 63.38 Est GFR (CKD-EPI)NonAf 54.68 POC Glucometer Random Glucose 142 H Calcium 8.8 S1 S2 Irregular Lungs decreased Abd- soft, NT no edema PLAN off heparin gtt On eliquis now continue with Lasix BID replace potassium check renal function -- remains stable rate control with coreg OOB spoke with Cardiology --> for stress test later this week Problem List - Problems (1) Acute pulmonary edema Code(s): J81.0 - ACUTE PULMONARY EDEMA (2) Atrial fibrillation with rapid ventricular response Code(s): I48.91 - UNSPECIFIED ATRIAL FIBRILLATION (3) HTN (hypertension) Code(s): I10 - ESSENTIAL (PRIMARY) HYPERTENSION (4) Hypercholesterolemia Code(s): E78.00 - PURE HYPERCHOLESTEROLEMIA, UNSPECIFIED (5) Pulmonary HTN Code(s): I27.20 - PULMONARY HYPERTENSION, UNSPECIFIED
[2019-10-25] MEDS: ROSUVASTATIN CA 20 MG TABLET (FP) PO SCH (21:21)
[2019-10-25] MEDS ORDERED: SENNOSIDES 8.6MG TABLET (FP) PO PRN (21:36)
[2019-10-26] MEDS: FUROSEMIDE 40 MG/4 ML INJECTABLE VIAL IVPB SCH (06:00)
[2019-10-26] MEDS: INSULIN SLIDING SCALE (NOVOLOG) 1 VIAL SQ SCH ×4 (06:47→22:46)
[2019-10-26 08:29] LABS: HEMATOCRIT 29.1 % (32.4-45.2); HEMOGLOBIN 9.8 GM/dL (10.7-15.3); MCH 28.8 pg (25.7-33.7); MCHC 33.5 g/dl (32.0-36.0); MEAN PLT VOLUME 10.8 fl (7.5-11.1); PLATELET COUNT 152 K/MM3 (134-434); RBC 3.39 M/mm3 (3.60-5.2); RDW 14.9 % (11.6-15.6); WHITE BLOOD COUNT 6.7 K/mm3 (4.0-10.0)
--- NOTE | 2019-10-26 08:57 | PN ---
Progress Note, Physician History of Present Illness: Dyspnea on exertion, chest pressure and palpitations resolved with rate control and diuresis. - Current Medication List Current Medications: Active Medications Apixaban (Eliquis -) 5 mg PO BID [facility] Last Admin: 10/25/19 21:21 Dose: 5 mg Documented by: Carvedilol (Coreg -) 25 mg PO BID [facility] Last Admin: 10/25/19 21:21 Dose: 25 mg Documented by: Furosemide (Lasix Injection -) 40 mg IVPB DAILY [facility] Stop: 10/26/19 12:00 Insulin Aspart (Novolog Vial Sliding Scale -) 1 vial SQ ACHS [facility]; Protocol Last Admin: 10/26/19 06:47 Dose: Not Given Documented by: Insulin Detemir (Levemir Vial) 16 units SQ DAILY [facility] Last Admin: 10/25/19 11:30 Dose: 16 units Documented by: Lisinopril (Prinivil) 10 mg PO DAILY [facility] Last Admin: 10/25/19 10:00 Dose: 10 mg Documented by: Rosuvastatin Calcium (Crestor -) 20 mg PO HS [facility] Last Admin: 10/25/19 21:21 Dose: 20 mg Documented by: Senna (Senna -) 2 tab PO HS PRN PRN Reason: CONSTIPATION Last Admin: 10/25/19 22:04 Dose: 2 tab Documented by: - Objective Vital Signs: Vital Signs Temperature 98 F 10/26/19 06:00 Pulse Rate 89 10/26/19 06:00 Respiratory Rate 18 10/26/19 06:00 Blood Pressure 155/86 10/26/19 06:00 O2 Sat by Pulse Oximetry (%) 97 10/26/19 08:15 Constitutional: Yes: No Distress, Calm, Thin Neck: Yes: Supple Cardiovascular: Yes: Pulse Irregular Respiratory: Yes: Regular, CTA Bilaterally Gastrointestinal: Yes: Normal Bowel Sounds, Soft Edema: No Labs: CBC, BMP 10/26/19 06:50 10/25/19 06:45 INR, PTT INR 1.18 (0.83-1.09) H 10/22/19 11:30 - ....Imaging EKG: Report Reviewed (Tele: Rate-controlled afib) Assessment/Plan Problem List - Problems (1) HTN (hypertension) Code(s): I10 - ESSENTIAL (PRIMARY) HYPERTENSION (2) Hypercholesterolemia Code(s): E78.00 - PURE HYPERCHOLESTEROLEMIA, UNSPECIFIED (3) Pulmonary HTN Code(s): I27.20 - PULMONARY HYPERTENSION, UNSPECIFIED (4) Anemia Code(s): D64.9 - ANEMIA, UNSPECIFIED Qualifiers: Anemia type: unspecified type Qualified Code(s): D64.9 - Anemia, unspecified (5) New onset atrial fibrillation Code(s): I48.91 - UNSPECIFIED ATRIAL FIBRILLATION Assessment/Plan 10/24/2019 Echo: Normal LV size with mild cLVH, normal LVEF 55-60%, mild LAE, mild-mod TR RVSP 55 mmHg 1. Persistent atrial fibrillation, newly diagnosed and rate-controlled [id number] score of 5 2. HTN 3. DM 4. 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 Acute on chronic diastolic LV failure resolved PLAN: 1. Continue Eliquis 5 mg BID 2. Continue Carvedilol 25 mg BID and lisinopril 10 mg QD with uptitration as tolerated 3. Rosuvastatin 20 mg QHS 4. Change Furosemide 20 mg po QD and monitor renal function and electrolytes, repleted K 5. If patient remains in AF, may consider synchronized cardioversion as outpatient 6. Lexiscan Myoview in AM as euvolemic and rate-controlled
[2019-10-26] MEDS: APIXABAN 5 MG TABLET PO SCH ×2 (10:00→22:44)
[2019-10-26] MEDS ORDERED: FUROSEMIDE 40 MG/4 ML INJECTABLE VIAL IVPB SCH (10:00)
[2019-10-26] MEDS: LISINOPRIL 10 MG TABLET (FP) PO SCH (10:00)
[2019-10-26] MEDS: CARVEDILOL 12.5 MG TABLET (FP) PO SCH ×2 (10:00→22:44)
[2019-10-26] MEDS: INSULIN (LEVEMIR) 100 UNITS/ML UNITS SQ SCH (10:00)
[2019-10-26] MEDS: FUROSEMIDE 20 MG TABLET (FP) PO SCH (10:06)
[2019-10-26] MEDS ORDERED: LISINOPRIL 20 MG TABLET (FP) PO SCH (13:27)
--- NOTE | 2019-10-26 13:27 | PN ---
Progress Note (short form) - Note Progress Note: events noted no chest pain no sob feels well Vital Signs - 24 hr 10/25/19 10/25/19 10/25/19 14:00 18:00 20:00 Temperature 98.2 F 98.1 F Pulse Rate 85 96 H Respiratory 18 18 Rate Blood Pressure 146/73 140/87 O2 Sat by Pulse 100 100 Oximetry (%) 10/25/19 10/25/19 10/26/19 21:00 22:00 02:00 Temperature 98.2 F 98.1 F Pulse Rate 104 H 96 H Respiratory 18 18 Rate Blood Pressure 154/83 141/84 O2 Sat by Pulse 100 100 97 Oximetry (%) 10/26/19 10/26/19 10/26/19 06:00 08:15 09:00 Temperature 98 F Pulse Rate 89 Respiratory 18 Rate Blood Pressure 155/86 O2 Sat by Pulse 100 97 96 Oximetry (%) 10/26/19 10:00 Temperature 98.2 F Pulse Rate 86 Respiratory 20 Rate Blood Pressure 163/91 O2 Sat by Pulse 96 Oximetry (%) Current Medications Generic Name Dose Route Start Last Admin Trade Name Freq PRN Reason Stop Dose Admin Apixaban 5 mg 10/24/19 11:15 10/26/19 10:00 Eliquis - PO 5 mg BID [facility] Administration Carvedilol 25 mg 10/25/19 12:16 10/26/19 10:00 Coreg - PO 25 mg BID [facility] Administration Furosemide 20 mg 10/26/19 10:00 10/26/19 10:06 Lasix - PO 20 mg DAILY [facility] Administration Insulin Aspart 1 vial 10/22/19 22:00 10/26/19 11:59 Novolog Vial Sliding Scale - SQ 6 unit ACHS [facility] Administration Protocol Insulin Detemir 16 units 10/25/19 10:00 10/26/19 10:00 Levemir Vial SQ 16 units DAILY [facility] Administration Lisinopril 10 mg 10/23/19 10:00 10/26/19 10:00 Prinivil PO 10 mg DAILY [facility] Administration Rosuvastatin Calcium 20 mg 10/23/19 22:00 10/25/19 21:21 Crestor - PO 20 mg HS [facility] Administration Senna 2 tab 10/25/19 21:36 10/25/19 22:04 Senna - PO 2 tab HS PRN Administration CONSTIPATION Laboratory Results - last 24 hr 10/25/19 10/26/19 10/26/19 17:37 06:50 06:50 WBC 6.7 RBC 3.39 L Hgb 9.8 L Hct 29.1 L MCV 86.0 MCH 28.8 MCHC 33.5 RDW 14.9 Plt Count 152 MPV 10.8 PTT (Actin FS) 31.6 POC Glucometer 116 10/26/19 11:57 WBC RBC Hgb Hct MCV MCH MCHC RDW Plt Count MPV PTT (Actin FS) POC Glucometer 256 S1 S2 Irregular Lungs decreased Abd- soft, NT no edema PLAN off heparin gtt On eliquis now continue with Lasix -- changed to PO replace potassium check renal function -- remains stable increase lisinopril for better BP control rate control with coreg OOB spoke with Cardiology --> for stress tomorrow spoke with daughter Problem List - Problems (1) Acute pulmonary edema Code(s): J81.0 - ACUTE PULMONARY EDEMA (2) Atrial fibrillation with rapid ventricular response Code(s): I48.91 - UNSPECIFIED ATRIAL FIBRILLATION (3) HTN (hypertension) Code(s): I10 - ESSENTIAL (PRIMARY) HYPERTENSION (4) Hypercholesterolemia Code(s): E78.00 - PURE HYPERCHOLESTEROLEMIA, UNSPECIFIED (5) Pulmonary HTN Code(s): I27.20 - PULMONARY HYPERTENSION, UNSPECIFIED
[2019-10-26] MEDS: ROSUVASTATIN CA 20 MG TABLET (FP) PO SCH (22:44)
[2019-10-27] MEDS: INSULIN SLIDING SCALE (NOVOLOG) 1 VIAL SQ SCH ×3 (06:48→16:55)
[2019-10-27 08:18] LABS: HEMATOCRIT 29.6 % (32.4-45.2); HEMOGLOBIN 9.8 GM/dL (10.7-15.3); MCH 28.7 pg (25.7-33.7); MCHC 33.3 g/dl (32.0-36.0); MEAN CELL VOLUME 86.2 fl (80-96); MEAN PLT VOLUME 10.7 fl (7.5-11.1); PLATELET COUNT 156 K/MM3 (134-434); RBC 3.43 M/mm3 (3.60-5.2); RDW 14.9 % (11.6-15.6); WHITE BLOOD COUNT 7.1 K/mm3 (4.0-10.0)
--- NOTE | 2019-10-27 08:40 | PN ---
Progress Note, Physician History of Present Illness: Dyspnea on exertion, chest pressure and palpitations resolved with rate control and diuresis. Leximibi negative for ischemia. - Current Medication List Current Medications: Active Medications Apixaban (Eliquis -) 5 mg PO BID [facility] Last Admin: 10/26/19 22:44 Dose: 5 mg Documented by: Carvedilol (Coreg -) 25 mg PO BID [facility] Last Admin: 10/26/19 22:44 Dose: 25 mg Documented by: Furosemide (Lasix -) 20 mg PO DAILY [facility] Last Admin: 10/26/19 10:06 Dose: 20 mg Documented by: Insulin Aspart (Novolog Vial Sliding Scale -) 1 vial SQ ACHS [facility]; Protocol Last Admin: 10/27/19 06:48 Dose: Not Given Documented by: Insulin Detemir (Levemir Vial) 16 units SQ DAILY [facility] Last Admin: 10/26/19 10:00 Dose: 16 units Documented by: Lisinopril (Prinivil) 20 mg PO DAILY [facility] Rosuvastatin Calcium (Crestor -) 20 mg PO HS [facility] Last Admin: 10/26/19 22:44 Dose: 20 mg Documented by: Senna (Senna -) 2 tab PO HS PRN PRN Reason: CONSTIPATION Last Admin: 10/25/19 22:04 Dose: 2 tab Documented by: - Objective Vital Signs: Vital Signs Temperature 98.7 F 10/27/19 05:57 Pulse Rate 84 10/27/19 05:57 Respiratory Rate 18 10/27/19 05:57 Blood Pressure 149/83 10/27/19 05:57 O2 Sat by Pulse Oximetry (%) 98 10/27/19 07:58 Constitutional: Yes: No Distress, Calm, Thin Neck: Yes: Supple Cardiovascular: Yes: Pulse Irregular Respiratory: Yes: Regular, CTA Bilaterally Gastrointestinal: Yes: Normal Bowel Sounds, Soft Edema: No Labs: CBC, BMP 10/27/19 06:28 10/25/19 06:45 INR, PTT INR 1.18 (0.83-1.09) H 10/22/19 11:30 - ....Imaging EKG: Report Reviewed (Tele: Rate-controlled afib) Assessment/Plan Problem List - Problems (1) HTN (hypertension) Code(s): I10 - ESSENTIAL (PRIMARY) HYPERTENSION (2) Hypercholesterolemia Code(s): E78.00 - PURE HYPERCHOLESTEROLEMIA, UNSPECIFIED (3) Pulmonary HTN Code(s): I27.20 - PULMONARY HYPERTENSION, UNSPECIFIED (4) Anemia Code(s): D64.9 - ANEMIA, UNSPECIFIED Qualifiers: Anemia type: unspecified type Qualified Code(s): D64.9 - Anemia, unspecified (5) New onset atrial fibrillation Code(s): I48.91 - UNSPECIFIED ATRIAL FIBRILLATION Assessment/Plan 10/24/2019 Echo: Normal LV size with mild cLVH, normal LVEF 55-60%, mild LAE, mild-mod TR RVSP 55 mmHg Leximibi: No ischemia, LVEF 41% possible gating artifact affecting LV assessment 1. Persistent atrial fibrillation, newly diagnosed and rate-controlled [id number] score of 5 2. HTN 3. DM 4. 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 Acute on chronic diastolic LV failure resolved PLAN: 1. Continue Eliquis 5 mg BID 2. Continue Carvedilol 25 mg BID and increased lisinopril 20 mg QD with uptitration as tolerated 3. Rosuvastatin 20 mg QHS 4. Furosemide 20 mg po QD and monitor renal function and electrolytes, repleted K 5. If patient remains in AF, may consider synchronized cardioversion as outpatient 6. Wayne Irving reviewed with patient 7. Patient may be d/esau home with f/u in office
[2019-10-27] MEDS ORDERED: REGADENOSON 0.4 MG/5 ML PRE-FILLED SYRINGE IVPUSH ONE ×2 (09:30→10:54)
[2019-10-27] MEDS ORDERED: PT OWN MED DRAWER 7, Y5N ONE (12:30)
[2019-10-27] MEDS: CARVEDILOL 12.5 MG TABLET (FP) PO SCH (12:32)
[2019-10-27] MEDS: FUROSEMIDE 20 MG TABLET (FP) PO SCH (12:33)
[2019-10-27] MEDS: APIXABAN 5 MG TABLET PO SCH (12:33)
[2019-10-27] MEDS: INSULIN (LEVEMIR) 100 UNITS/ML UNITS SQ SCH (12:37)
--- NOTE | 2019-10-27 14:31 | PN ---
Progress Note, Physician History of Present Illness: Pt seen/ examined Chart reviewed Events noted tachy today earlier -- had not gottten med today feels well chart reviewed no complains - Current Medication List Current Medications: Active Medications Apixaban (Eliquis -) 5 mg PO BID [facility] Last Admin: 10/27/19 12:33 Dose: 5 mg Documented by: Carvedilol (Coreg -) 25 mg PO BID [facility] Last Admin: 10/27/19 12:32 Dose: 25 mg Documented by: Furosemide (Lasix -) 20 mg PO DAILY [facility] Last Admin: 10/27/19 12:33 Dose: 20 mg Documented by: Insulin Aspart (Novolog Vial Sliding Scale -) 1 vial SQ [facility]; Protocol Last Admin: 10/27/19 12:37 Dose: Not Given Documented by: Insulin Detemir (Levemir Vial) 16 units SQ DAILY [facility] Last Admin: 10/27/19 12:37 Dose: 16 units Documented by: Lisinopril (Prinivil) 20 mg PO DAILY [facility] Last Admin: 10/27/19 12:33 Dose: 20 mg Documented by: Rosuvastatin Calcium (Crestor -) 20 mg PO HS [facility] Last Admin: 10/26/19 22:44 Dose: 20 mg Documented by: Senna (Senna -) 2 tab PO HS PRN PRN Reason: CONSTIPATION Last Admin: 10/25/19 22:04 Dose: 2 tab Documented by: - Objective Vital Signs: Vital Signs Temperature 98.4 F 10/27/19 09:00 Pulse Rate 90 10/27/19 09:00 Respiratory Rate 18 10/27/19 09:00 Blood Pressure 160/80 10/27/19 09:00 O2 Sat by Pulse Oximetry (%) 96 10/27/19 09:00 Constitutional: Yes: No Distress Neck: Yes: Supple Cardiovascular: Yes: Pulse Irregular Respiratory: Yes: Diminished Gastrointestinal: Yes: Soft Edema: No Neurological: Yes: Alert Psychiatric: Yes: Alert Labs: CBC, BMP 10/27/19 06:28 10/25/19 06:45 INR, PTT INR 1.18 (0.83-1.09) H 10/22/19 11:30 Problem List - Problems (1) Acute pulmonary edema Code(s): J81.0 - ACUTE PULMONARY EDEMA (2) Thrombocytopenia Code(s): D69.6 - THROMBOCYTOPENIA, UNSPECIFIED (3) Anemia Code(s): D64.9 - ANEMIA, UNSPECIFIED Qualifiers: Anemia type: unspecified type Qualified Code(s): D64.9 - Anemia, unspecified (4) Atrial fibrillation with rapid ventricular response Code(s): I48.91 - UNSPECIFIED ATRIAL FIBRILLATION (5) New onset atrial fibrillation Code(s): I48.91 - UNSPECIFIED ATRIAL FIBRILLATION Assessment/Plan clinically muc better stress test -ve will d/c home today to family will discuss
[2019-10-27 15:37] VITALS: BP 120/80; PULSE 112; TEMP 98.1
--- NOTE | 2019-10-27 18:22 | DS ---
Physical Examination Vital Signs: Vital Signs Temperature 98.1 F 10/27/19 13:00 Pulse Rate 112 H 10/27/19 13:00 Respiratory Rate 16 10/27/19 13:00 Blood Pressure 120/80 10/27/19 13:00 O2 Sat by Pulse Oximetry (%) 99 10/27/19 13:00 Findings/Remarks: see today progress note Labs: CBC, BMP 10/27/19 06:28 10/25/19 06:45 Discharge Summary Problems reviewed: Yes Reason For Visit: ANEMIA/NEW ONSET ATRIAL FIBRILLATION/ACUTE Current Active Problems Acute pulmonary edema (Acute) Anemia (Acute) Atrial fibrillation with rapid ventricular response (Acute) HTN (hypertension) (Acute) Hypercholesterolemia (Acute) New onset atrial fibrillation (Acute) Pulmonary HTN (Acute) Thrombocytopenia (Acute) Hospital Course: pt with extensive history admitted for new onset afib and pulmonary Edema treated with A/C and diuretics got much better Stress test -ve stable for d/c d/w pts daughter also meds reconcilled send to pharmacy as needed f/u in office next week Condition: Stable - Instructions Referrals: Maddison Vasquez MD [Primary Care Provider] - - Home Medications Comprehensive Discharge Medication List: Ambulatory Orders Alendronate Sodium [Fosamax] 1 tab PO WEEKLY 10/22/19 Gabapentin [Neurontin] 300 mg PO DAILY 10/22/19 Insulin Detemir [Levemir Flextouch] 15 unit SQ DAILY 10/22/19 Metformin HCl [Glucophage] 1,000 mg PO DAILY 10/22/19 Rosuvastatin [Crestor -] 20 mg PO DAILY 10/22/19 Apixaban [Eliquis -] 5 mg PO BID #60 tablet 10/27/19 Carvedilol [Coreg -] 25 mg PO BID #60 tablet 10/27/19 Furosemide [Lasix -] 20 mg PO DAILY 30 Days #30 tablet 10/27/19 Lisinopril [Prinivil] 20 mg PO DAILY #30 tablet 10/27/19 Sennosides [Senna -] 2 tab PO HS PRN tablet 10/27/19
== END 2019-10-27 18:53 | disposition home or self-care (01) | DRG 308 ==
LOC: JER 11:00 → JERBED 13:46 → J4S 10-23 14:17
PROVIDERS: ADMIT Internal Medicine; ATTEND Internal Medicine
DX: I48.19 Other persistent atrial fibrillation (principal); J81.0 Acute pulmonary edema; I50.33 Acute on chronic diastolic (congestive) heart failure; E11.9 Type 2 diabetes mellitus without complications; I11.0 Hypertensive heart disease with heart failure; D64.9 Anemia, unspecified; I27.20 Pulmonary hypertension, unspecified; D69.6 Thrombocytopenia, unspecified; I08.1 Rheumatic disorders of both mitral and tricuspid valves; E78.00 Pure hypercholesterolemia, unspecified; R00.0 Tachycardia, unspecified
CPT/HCPCS: 36415; 71045-TC-FY; 78452-TC; 80048; 80053; 80061; 81003; 82272; 82550; 82553; 82962; 83036; 83721; 83735; 83880; 84443; 84484; 85025; 85027; 85610; 85730; 93005; 93010; 93017; 93306-TC; 94660; 97116-GP; 97161-GP; 99285-25; A9502; J1644; J2785; U0003

== ENCOUNTER 2019-11-05 14:00 | Inpatient (IN) | payer OTHER, BC ==
--- NOTE | 2019-11-05 14:24 | PDOC ---
Attending Attestation - Resident Resident Name: Carlos Alberto Guzmán - HPI HPI: 11/05/19 16:48 11/05/19 16:56 11/13/19 07:10 Pt presents to the ED complaining of palpitations and shortness of breath. Recent admission for CHF/new onset A fib, during which she was started on metoprolol. patient reports compliance with medications. - Physicial Exam PE: 11/13/19 07:12 Agree with resident exam. Patient is alert and oriented and in no acute d istress. CV: irregularly irregular, no murmurs. Pulm: cta b/l. Abdomen: soft, non tender, non distended no guarding or rebound. - Medical Decision Making 11/13/19 07:23 Pt presents to the ED complaining of palpitations and shortness of breath. In rapid a fib on arrival to the ED. Improved after 5 mg metoprolol. CXR shows persistent CHF. Will admit to medicine for a fib and CHF. Discharge - Discharge Information Problems reviewed: Yes Clinical Impression/Diagnosis: Atrial fibrillation with rapid ventricular response, Chest pain Condition: Stable Disposition: HOME - Follow up/Referral - Patient Discharge Instructions - Post Discharge Activity
[2019-11-05] MEDS ORDERED: METOPROLOL TARTRATE 5 MG/5 ML VIAL IVPUSH ONE ×2 (14:28→15:30)
[2019-11-05] MEDS ORDERED: METOPROLOL TARTRATE 5 MG/5 ML VIAL ONE ×2 (14:39→15:34)
--- NOTE | 2019-11-05 14:39 | PDOC ---
History of Present Illness - General Chief Complaint: Irregular Heart Beat Stated Complaint: A-FIB Time Seen by Provider: 11/05/19 14:16 - History of Present Illness Initial Comments: Vicki Aguilar is a 74 y/o female with PMH significant for HTN, DM, TIA, presenting today with heart palpitations and shortness of breath. She was seen here 1 week ago for similar symptoms and admitted and diagnosed with new onset a-fib and pulmonary edema. Started on coreg and eliquis and lasix which she has been taking consistently every day. Reports that she started having shortness of breath and palpitations last night that worsened today. Reports mild chest pain yesterday. No headache/dizziness. No abdominal pain. No leg swelling. No loss of consciousness. Past History - Medical History Allergies/Adverse Reactions: Allergies Allergy/AdvReac Type Severity Reaction Status Date / Time No Known Allergies Allergy Verified 11/05/19 14:06 Home Medications: Ambulatory Orders Alendronate Sodium [Fosamax] 1 tab PO WEEKLY 10/22/19 Gabapentin [Neurontin] 300 mg PO DAILY 10/22/19 Insulin Detemir [Levemir Flextouch] 15 unit SQ DAILY 10/22/19 Metformin HCl [Glucophage] 1,000 mg PO DAILY 10/22/19 Rosuvastatin [Crestor -] 20 mg PO DAILY 10/22/19 Apixaban [Eliquis -] 5 mg PO BID #60 tablet 10/27/19 Carvedilol [Coreg -] 25 mg PO BID #60 tablet 10/27/19 Furosemide [Lasix -] 20 mg PO DAILY 30 Days #30 tablet 10/27/19 Lisinopril [Prinivil] 20 mg PO DAILY #30 tablet 10/27/19 Sennosides [Senna -] 2 tab PO HS PRN tablet 10/27/19 Cardiac Disorders: Yes CVA: (TIA) COPD: No Diabetes: Yes HTN: Yes - Surgical History Cholecystectomy: Yes - Psycho-Social/Smoking History Smoking History: Never smoked - Substance Abuse Hx (Audit-C & DAST Scrn) How often the patient has a drink containing alcohol: Never Score: In Men: 4 or > Positive; In Women: 3 or > Positive: 0 Screen Result (Pos requires Nsg. Audit-10AR): Negative Review of Systems - Review of Systems Comments:: GENERAL/CONSTITUTIONAL: No fever or chills. No weakness._ HEAD, EYES, EARS, NOSE AND THROAT: No change in vision. No change in hearing. No sore throat._ CARDIOVASCULAR: No chest pain. Reports shortness of breath and heart palpitations. RESPIRATORY: Denies cough, hemoptysis_ GASTROINTESTINAL: No nausea, vomiting, diarrhea or constipation._ GENITOURINARY: No dysuria, frequency, or change in urination._ MUSCULOSKELETAL: No joint or muscle swelling or pain. No neck or back pain._ SKIN: No rash_ NEUROLOGIC: No headache, vertigo, loss of consciousness, or change in strength/sensation._ ENDOCRINE: No increased thirst. No abnormal weight change_ ALLERGIC/IMMUNOLOGIC: No hives or skin allergy._ *Physical Exam - Vital Signs Last Vital Signs Temp Pulse Resp BP Pulse Ox 98.0 F 86 18 136/87 96 11/06/19 01:00 11/06/19 01:00 11/06/19 01:00 11/06/19 01:00 11/06/19 02:23 - Physical Exam GENERAL: Awake, alert, and oriented to person/place/time, in no acute distress_ HEAD: No signs of trauma, normocephalic, atraumatic _ EYES: PERRLA, EOMI, sclera anicteric, conjunctiva clear_ ENT: Hearing grossly normal, nares patent, oropharynx clear without exudates. No uvular deviation. Moist mucosa_ NECK: Normal ROM, supple, no lymphadenopathy, JVD, or masses_ LUNGS: No distress, speaks in full sentences, clear to auscultation bilaterally _ HEART: Irregularly irregular, normal S1 and S2, no murmurs appreciated, peripheral pulses normal and equal bilaterally._ ABDOMEN: Soft, nontender, normoactive bowel sounds. No guarding, no rebound. No masses_ EXTREMITIES: Normal inspection, Normal range of motion, no edema BLE. No clubbing or cyanosis_ NEUROLOGICAL: Cranial nerves II through XII grossly intact. Normal speech, normal gait, no focal sensorimotor deficits _ SKIN: Warm, Dry, normal turgor, no rashes or lesions noted_ ED Treatment Course - LABORATORY CBC & Chemistry Diagram: 11/05/19 14:55 11/05/19 14:55 - ADDITIONAL ORDERS Additional order review: Laboratory Results 11/05/19 14:55 Sodium 142 Potassium 4.8 Chloride 110 H Carbon Dioxide 27 Anion Gap 4 L BUN 23.9 H Creatinine 1.3 Est GFR (CKD-EPI)AfAm 46.15 Est GFR (CKD-EPI)NonAf 39.82 Random Glucose 179 H Calcium 8.8 Magnesium 2.4 Total Bilirubin 0.6 AST 7 L ALT 27 Alkaline Phosphatase 45 Creatine Kinase 72 Troponin I < 0.02 B-Natriuretic Peptide 2535.0 H Total Protein 7.5 Albumin 3.5 TSH 1.08 11/05/19 14:55 RBC 3.37 L MCV 86.9 MCHC 33.2 RDW 14.7 MPV 12.1 H D Neutrophils % 75.8 Lymphocytes % 17.0 D Monocytes % 4.3 Eosinophils % 1.7 Basophils % 1.2 - RADIOLOGY Radiology Studies Ordered: Category Date Time Status CHEST X-RAY PORTABLE* [RAD] Stat Radiology 11/05/19 14:41 Completed - Medications Given in the ED: ED Medications Discontinued Medications Generic Name Dose Route Start Last Admin Trade Name Freq PRN Reason Stop Dose Admin Metoprolol Tartrate 5 mg 11/05/19 14:28 11/05/19 14:47 Lopressor Injection - IVPUSH 11/05/19 14:29 5 mg ONCE ONE Administration Metoprolol Tartrate 5 mg 11/05/19 15:30 11/05/19 15:39 Lopressor Injection - IVPUSH 11/05/19 15:31 5 mg ONCE ONE Administration Medical Decision Making - Medical Decision Making 74F hx of HTN DM TIA presenting today with heart palpitations and shortness of breath that started last night and worsened today. Seen here for similar symptoms last week and admitted for new onset a-fib and pulmonary edema. Started on coreg, eliquis, lasix. She has been taking her medications every day. Echo shows LVEF wnl with moderate mitral/tricuspid regurg. CHADVASC score 5. Seen by cardiology and plan was to cardiovert outpatient if still in a-fib. Pt found to be in a-fib with RVR, 110-120s. BP 160-180/100-110. Will start with metoprolol 5 mg for rate control. -cbc, cmp -ekg, trop, cxr -mg -tsh -bnp -coags 11/05/19 14:42 EKG shows 113 bpm, a-fib with RVR, no axis deviation, QTc 419, no ST elevatio n/depression. Compared to EKG on 10/24/2019 a-fib with RVR has replaced a-fib. 11/05/19 15:13 CXR shows persistent chest congestive findings and mild cardiomegaly. 11/05/19 15:32 Pt reassessed. Reports that her palpitations and SOB improved initially but feels that they are coming back again. HR from 100 to 115. Will order another metoprolol 5 mg. 11/05/19 15:33 Daughter: [phone] 11/05/19 15:53 Labs reviewed. Laboratory Last Values WBC 5.9 K/mm3 (4.0-10.0) 11/05/19 14:55 RBC 3.37 M/mm3 (3.60-5.2) L 11/05/19 14:55 Hgb 9.7 GM/dL (10.7-15.3) L 11/05/19 14:55 Hct 29.3 % (32.4-45.2) L 11/05/19 14:55 MCV 86.9 fl (80-96) 11/05/19 14:55 MCH 28.8 pg (25.7-33.7) 11/05/19 14:55 MCHC 33.2 g/dl (32.0-36.0) 11/05/19 14:55 RDW 14.7 % (11.6-15.6) 11/05/19 14:55 Plt Count 122 K/MM3 (134-434) L D 11/05/19 14:55 MPV 12.1 fl (7.5-11.1) H D 11/05/19 14:55 Absolute Neuts (auto) 4.5 K/mm3 (1.5-8.0) 11/05/19 14:55 Neutrophils % 75.8 % (42.8-82.8) 11/05/19 14:55 Lymphocytes % 17.0 % (8-40) D 11/05/19 14:55 Monocytes % 4.3 % (3.8-10.2) 11/05/19 14:55 Eosinophils % 1.7 % (0-4.5) 11/05/19 14:55 Basophils % 1.2 % (0-2.0) 11/05/19 14:55 Nucleated RBC % 0 % (0-0) 11/05/19 14:55 PT with INR 20.50 SEC (9.7-13.0) H 11/05/19 14:55 INR 1.73 (0.83-1.09) H 11/05/19 14:55 PTT (Actin FS) 32.5 SECONDS (25.2-36.5) 11/05/19 14:55 Sodium 142 mmol/L (136-145) 11/05/19 14:55 Potassium 4.8 mmol/L (3.5-5.1) 11/05/19 14:55 Chloride 110 mmol/L (98-107) H 11/05/19 14:55 Carbon Dioxide 27 mmol/L (21-32) 11/05/19 14:55 Anion Gap 4 MMOL/L (8-16) L 11/05/19 14:55 BUN 23.9 mg/dL (7-18) H 11/05/19 14:55 Creatinine 1.3 mg/dL (0.55-1.3) 11/05/19 14:55 Est GFR (CKD-EPI)AfAm 46.15 11/05/19 14:55 Est GFR (CKD-EPI)NonAf 39.82 11/05/19 14:55 Random Glucose 179 mg/dL (74-106) H 11/05/19 14:55 Calcium 8.8 mg/dL (8.5-10.1) 11/05/19 14:55 Magnesium 2.4 mg/dL (1.8-2.4) 11/05/19 14:55 Total Bilirubin 0.6 mg/dL (0.2-1) 11/05/19 14:55 AST 7 U/L (15-37) L 11/05/19 14:55 ALT 27 U/L (13-61) 11/05/19 14:55 Alkaline Phosphatase 45 U/L (45-117) 11/05/19 14:55 Creatine Kinase 72 U/L (26-192) 11/05/19 14:55 Troponin I < 0.02 ng/ml (0.00-0.05) 11/05/19 14:55 B-Natriuretic Peptide 2535.0 pg/ml (5-450) H 11/05/19 14:55 Total Protein 7.5 g/dl (6.4-8.2) 11/05/19 14:55 Albumin 3.5 g/dl (3.4-5.0) 11/05/19 14:55 TSH 1.08 uIU/ml (0.358-3.74) 11/05/19 14:55 Will hold lasix at this time as pt already received metoprolol and BP has decreased, and pt does not have any rales, crackles, or lower extremity edema. 11/05/19 16:09 D/w Dr. Juan Brizuela who accepts the patient for admission. Discharge - Discharge Information Problems reviewed: Yes Clinical Impression/Diagnosis: Atrial fibrillation with rapid ventricular response, Chest pain Condition: Stable - Admission Yes - Follow up/Referral - Patient Discharge Instructions - Post Discharge Activity
[2019-11-05 15:04] LABS: BASO % 1.2 % (0-2.0); EOS % 1.7 % (0-4.5); HEMATOCRIT 29.3 % (32.4-45.2); HEMOGLOBIN 9.7 GM/dL (10.7-15.3); MCH 28.8 pg (25.7-33.7); MCHC 33.2 g/dl (32.0-36.0); MEAN CELL VOLUME 86.9 fl (80-96); MEAN PLT VOLUME 12.1 fl (7.5-11.1); MONO % 4.3 % (3.8-10.2); NEUT % 75.8 % (42.8-82.8); PLATELET COUNT 122 K/MM3 (134-434); RBC 3.37 M/mm3 (3.60-5.2); RDW 14.7 % (11.6-15.6); WHITE BLOOD COUNT 5.9 K/mm3 (4.0-10.0)
[2019-11-05 15:11] LABS: INR 1.73 (0.83-1.09); PROTHROMBIN TIME (PATIENT) 20.5 SEC (9.7-13.0)
[2019-11-05 15:13] LABS: ACTIVATED PTT 32.5 SECONDS (25.2-36.5)
[2019-11-05 15:39] LABS: ALBUMIN 3.5 g/dl (3.4-5.0); ALK PHOS 45 U/L (45-117); ANION GAP 4 MMOL/L (8-16); BILIRUBIN,TOTAL 0.6 mg/dL (0.2-1); BLOOD UREA NITROGEN 23.9 mg/dL (7-18); CALCIUM 8.8 mg/dL (8.5-10.1); CHLORIDE 110 mmol/L (98-107); CO2 27 mmol/L (21-32); CREATININE 1.3 mg/dL (0.55-1.3); GLUCOSE,RANDOM 179 mg/dL (74-106); MAGNESIUM 2.4 mg/dL (1.8-2.4); POTASSIUM 4.8 mmol/L (3.5-5.1); SGOT/AST 7 U/L (15-37); SGPT/ALT 27 U/L (13-61); SODIUM 142 mmol/L (136-145); TOT PROT 7.5 g/dl (6.4-8.2)
[2019-11-05] MEDS ORDERED: SENNOSIDES 8.6MG TABLET (FP) PO PRN (18:41)
[2019-11-05] MEDS ORDERED: ACETAMINOPHEN 325 MG TABLET (FP) PO PRN (18:48)
--- NOTE | 2019-11-05 18:52 | HP ---
Admitting History and Physical - Primary Care Physician PCP: Juan Brizuela - Admission History of Present Illness: Case discussed with Er resident Chart is reviewed Pt known to me from recent admission Per Er Notes Vicki Aguilar is a 74 y/o female with PMH significant for HTN, DM, TIA, presenting today with heart palpitations and shortness of breath. She was seen here 1 week ago for similar symptoms and admitted and diagnosed with new onset a-fib and pulmonary edema. Started on coreg and eliquis and lasix which she has been taking consistently every day. Reports that she started having shortness of breath and palpitations last night that worsened today. Reports mild chest pain yesterday. No headache/dizziness. No abdominal pain. No leg swelling. No loss of consciousness. Pt found in rapid afib given few doses of i/v metoprolol with slowing down pt will be admitted to tele cxr also noted-- congestive changes persist BNP also elevated On lasix 20 mg dose-- will give i/v lasix History Source: Patient, Medical Record Limitations to Obtaining History: No Limitations - Past Medical History Cardiovascular: Yes: AFIB, HTN - Smoking History Smoking history: Never smoked Home Medications - Allergies Allergies/Adverse Reactions: Allergies Allergy/AdvReac Type Severity Reaction Status Date / Time No Known Allergies Allergy Verified 11/05/19 14:06 - Home Medications Home Medications: Ambulatory Orders Alendronate Sodium [Fosamax] 1 tab PO WEEKLY 10/22/19 Gabapentin [Neurontin] 300 mg PO DAILY 10/22/19 Insulin Detemir [Levemir Flextouch] 15 unit SQ DAILY 10/22/19 Metformin HCl [Glucophage] 1,000 mg PO DAILY 10/22/19 Rosuvastatin [Crestor -] 20 mg PO DAILY 10/22/19 Apixaban [Eliquis -] 5 mg PO BID #60 tablet 10/27/19 Carvedilol [Coreg -] 25 mg PO BID #60 tablet 10/27/19 Furosemide [Lasix -] 20 mg PO DAILY 30 Days #30 tablet 10/27/19 Lisinopril [Prinivil] 20 mg PO DAILY #30 tablet 10/27/19 Sennosides [Senna -] 2 tab PO HS PRN tablet 10/27/19 Review of Systems Findings/Remarks: See [facility] Physical Examination Vital Signs: Vital Signs Temperature 98.4 F 11/05/19 14:04 Pulse Rate 104 H 11/05/19 17:30 Respiratory Rate 23 H 11/05/19 17:30 Blood Pressure 170/94 11/05/19 17:30 O2 Sat by Pulse Oximetry (%) 96 11/05/19 17:30 Findings/Remarks: As per Er physicians Labs: CBC, BMP 11/05/19 14:55 11/05/19 14:55 Imaging - Results Chest X-ray: Report Reviewed EKG: Report Reviewed Problem List - Problems (1) Congestive heart failure (CHF) Code(s): I50.9 - HEART FAILURE, UNSPECIFIED Qualifiers: Heart failure type: combined systolic and diastolic (2) Atrial fibrillation with rapid ventricular response Code(s): I48.91 - UNSPECIFIED ATRIAL FIBRILLATION (3) HTN (hypertension) Code(s): I10 - ESSENTIAL (PRIMARY) HYPERTENSION (4) Pulmonary HTN Code(s): I27.20 - PULMONARY HYPERTENSION, UNSPECIFIED Assessment/Plan Admit tele i/v lasix add cardizem for now for better rate control still >100 oxygen Cardiology consult Orders written Will follow
[2019-11-05] MEDS ORDERED: FUROSEMIDE 40 MG/4 ML INJECTABLE VIAL ONE (19:23)
[2019-11-05] MEDS: FUROSEMIDE 40 MG/4 ML INJECTABLE VIAL IVPUSH SCH (19:37)
[2019-11-05] MEDS ORDERED: dilTIAZem HCL 30 MG TABLET ONE (21:59)
[2019-11-05] MEDS ORDERED: CARVEDILOL 12.5 MG TABLET (FP) ONE (21:59)
[2019-11-05] MEDS ORDERED: APIXABAN 5 MG TABLET ONE (21:59)
[2019-11-05] MEDS ORDERED: METOPROLOL TARTRATE 50 MG TABLET (FP) PO SCH (22:00)
[2019-11-05] MEDS: APIXABAN 5 MG TABLET PO SCH (22:01)
[2019-11-05] MEDS: CARVEDILOL 25 MG TABLET (FP) PO SCH (22:02)
[2019-11-05] MEDS: dilTIAZem HCL 30 MG TABLET PO SCH (22:02)
--- NOTE | 2019-11-06 01:34 | CON.CARD ---
Consult Consult Specialty:: cardiology Reason for Consultation:: AF - History of Present Illness History of Present Illness: Ms. Aguilar is a 74 y/o female with PMH significant for AF, HTN, diastolic CHF, DM, TIA, anemia (noted since at least 09/2019), presenting today with heart palpitations and shortness of breath. She was seen here 1 week ago for similar symptoms and admitted and diagnosed with new onset a-fib and pulmonary edema. She was started on coreg, eliquis, and lasix, which she has been taking consistently every day. Reports that she started having shortness of breath and palpitations last night that worsened today. Reports mild chest pain yesterday. No headache/dizziness. No abdominal pain. No leg swelling. No loss of consciousness. BP was noted to be elevated in ER. - History Source History Provided By: Medical Record - Past Medical History Cardio/Vascular: Yes: AFIB, HTN - Smoking History Smoking history: Never smoked Home Medications - Allergies Allergies/Adverse Reactions: Allergies Allergy/AdvReac Type Severity Reaction Status Date / Time No Known Allergies Allergy Verified 11/05/19 14:06 - Home Medications Home Medications: Ambulatory Orders Alendronate Sodium [Fosamax] 1 tab PO WEEKLY 10/22/19 Gabapentin [Neurontin] 300 mg PO DAILY 10/22/19 Insulin Detemir [Levemir Flextouch] 15 unit SQ DAILY 10/22/19 Metformin HCl [Glucophage] 1,000 mg PO DAILY 10/22/19 Rosuvastatin [Crestor -] 20 mg PO DAILY 10/22/19 Apixaban [Eliquis -] 5 mg PO BID #60 tablet 10/27/19 Carvedilol [Coreg -] 25 mg PO BID #60 tablet 10/27/19 Furosemide [Lasix -] 20 mg PO DAILY 30 Days #30 tablet 10/27/19 Lisinopril [Prinivil] 20 mg PO DAILY #30 tablet 10/27/19 Sennosides [Senna -] 2 tab PO HS PRN tablet 10/27/19 Vital Signs: Vital Signs Temperature 98.0 F 11/06/19 01:00 Pulse Rate 86 11/06/19 01:00 Respiratory Rate 18 11/06/19 01:00 Blood Pressure 136/87 11/06/19 01:00 O2 Sat by Pulse Oximetry (%) 96 11/06/19 01:00 - Other Data Labs, Other Data: CBC, BMP 11/05/19 14:55 11/05/19 14:55 INR, PTT INR 1.73 (0.83-1.09) H 11/05/19 14:55 Troponin, BNP 11/05/19 14:55 Troponin I < 0.02 B-Natriuretic Peptide 2535.0 H Troponin, BNP 11/05/19 14:55 Troponin I < 0.02 B-Natriuretic Peptide 2535.0 H Assessment/Plan AF (initially diagnosed within the past few weeks) uncontrolled HTN DM HDL anemia Lexiscan MIBI 10/27/2019: no myocardial ischemia ECHO 09/2019: normal LVEF; mild LVH and LAE; mild-moderate TR and MR; moderately severe pulmonary HTN acute/chronic diastolic CHF COVID pending. Pl: Continue carvedilol and diltiazem for HR and BP control; continue lisinopril (HTN; DM). Continue apixaban for anticoagulation. telemetry monitoring; serial EKGs. Avoid excessive dehydration. F/u BUn/Cr, electrolytes, daily weight, Is and Os. TSH WNL. TNI 0.02 On rosuvastatin (total cholesterol 126 mg/dL 09/2019).
[2019-11-06] MEDS ORDERED: dilTIAZem HCL 30 MG TABLET ONE ×2 (05:28→14:26)
[2019-11-06] MEDS: dilTIAZem HCL 30 MG TABLET PO SCH ×3 (05:33→21:09)
[2019-11-06 07:06] LABS: BASO % 1.1 % (0-2.0); EOS % 3.4 % (0-4.5); HEMATOCRIT 27.9 % (32.4-45.2); HEMOGLOBIN 9.2 GM/dL (10.7-15.3); LYMPH % 29.1 % (8-40); MCH 28.5 pg (25.7-33.7); MEAN CELL VOLUME 86.3 fl (80-96); MONO % 5.1 % (3.8-10.2); NEUT % 61.3 % (42.8-82.8); PLATELET COUNT 109 K/MM3 (134-434); RBC 3.23 M/mm3 (3.60-5.2); RDW 14.9 % (11.6-15.6); WHITE BLOOD COUNT 5.6 K/mm3 (4.0-10.0)
[2019-11-06 07:40] LABS: ALBUMIN 3.3 g/dl (3.4-5.0); BILIRUBIN,TOTAL 0.5 mg/dL (0.2-1); BLOOD UREA NITROGEN 21.9 mg/dL (7-18); CALCIUM 8.4 mg/dL (8.5-10.1); CREATININE 1.1 mg/dL (0.55-1.3); MAGNESIUM 2.2 mg/dL (1.8-2.4); POTASSIUM 3.9 mmol/L (3.5-5.1); TOT PROT 6.7 g/dl (6.4-8.2)
--- NOTE | 2019-11-06 09:49 | PN ---
Progress Note, Physician History of Present Illness: Shortness of breath, palpitations, chest pain yesterday improved with rate- control, BP control and diuresis. - Current Medication List Current Medications: Active Medications Acetaminophen (Tylenol -) 650 mg PO Q6H PRN PRN Reason: PAIN LEVEL 1-5 Apixaban (Eliquis -) 5 mg PO BID COUNT INCLUDES THE [facility] Last Admin: 11/05/19 22:01 Dose: 5 mg Documented by: Carvedilol (Coreg -) 25 mg PO BID COUNT INCLUDES THE [facility] Last Admin: 11/05/19 22:02 Dose: 25 mg Documented by: Diltiazem HCl (Cardizem -) 30 mg PO TID COUNT INCLUDES THE [facility] Last Admin: 11/06/19 05:33 Dose: 30 mg Documented by: Furosemide (Lasix Injection -) 40 mg IVPUSH DAILY COUNT INCLUDES THE [facility] Last Admin: 11/05/19 19:37 Dose: 40 mg Documented by: Gabapentin (Neurontin -) 300 mg PO DAILY COUNT INCLUDES THE [facility] Insulin Aspart (Novolog Vial Sliding Scale -) 1 vial SQ BIDAC COUNT INCLUDES THE [facility]; Protocol Insulin Detemir (Levemir Vial) 15 units SQ DAILY COUNT INCLUDES THE [facility] Lisinopril (Prinivil) 20 mg PO DAILY COUNT INCLUDES THE [facility] Rosuvastatin Calcium (Crestor -) 20 mg PO HS COUNT INCLUDES THE [facility] Senna (Senna -) 2 tab PO HS PRN PRN Reason: CONSTIPATION - Objective Vital Signs: Vital Signs Temperature 97.8 F 11/06/19 07:15 Pulse Rate 67 11/06/19 07:15 Respiratory Rate 18 11/06/19 07:15 Blood Pressure 140/69 11/06/19 07:15 O2 Sat by Pulse Oximetry (%) 95 11/06/19 07:15 Constitutional: Yes: No Distress, Calm, Thin Neck: Yes: Supple Cardiovascular: Yes: Tachycardia, Pulse Irregular Respiratory: Yes: Regular, Diminished, On Nasal O2 Gastrointestinal: Yes: Normal Bowel Sounds, Soft Edema: No Labs: CBC, BMP 11/06/19 06:11 11/06/19 06:11 INR, PTT INR 1.73 (0.83-1.09) H 11/05/19 14:55 - ....Imaging Chest X-ray: Report Reviewed (Improved aeration with less congestion) EKG: Report Reviewed (Afib @ 113 PRWP) Problem List - Problems (1) Atrial fibrillation with rapid ventricular response Code(s): I48.91 - UNSPECIFIED ATRIAL FIBRILLATION (2) Congestive heart failure (CHF) Code(s): I50.9 - HEART FAILURE, UNSPECIFIED Qualifiers: Heart failure type: diastolic Heart failure chronicity: acute on chronic Qualified Code(s): I50.33 - Acute on chronic diastolic (congestive) heart failure (3) Anemia Code(s): D64.9 - ANEMIA, UNSPECIFIED Qualifiers: Anemia type: unspecified type Qualified Code(s): D64.9 - Anemia, unspecified (4) HTN (hypertension) Code(s): I10 - ESSENTIAL (PRIMARY) HYPERTENSION Qualifiers: Hypertension type: essential hypertension Qualified Code(s): I10 - Essential (primary) hypertension (5) Hypercholesterolemia Code(s): E78.00 - PURE HYPERCHOLESTEROLEMIA, UNSPECIFIED (6) Pulmonary HTN Code(s): I27.20 - PULMONARY HYPERTENSION, UNSPECIFIED (7) Type 2 diabetes mellitus Code(s): E11.9 - TYPE 2 DIABETES MELLITUS WITHOUT COMPLICATIONS Qualifiers: Diabetes mellitus terminal computer operator insulin use: with terminal computer operator use Diabetes mellitus complication status: without complication Qualified Code(s): E11.9 - Type 2 diabetes mellitus without complications; Z79.4 - marine oil terminal superintendent (current) use of insulin Assessment/Plan 10/24/2019 Echo: Normal LV size with mild cLVH, normal LVEF 55-60%, mild LAE, mild-mod TR RVSP 55 mmHg Leximibi: No ischemia, LVEF 41% possible gating artifact affecting LV assessment 1. Persistent atrial fibrillation with RVR [id number] score of 5 2. Acute on chronic diastolic LV failure 3. HTN 4. Type 2 DM 5. 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 HDL PLAN: 1. Continue Eliquis 5 mg BID, Carvedilol 25 mg BID, added Cardizem 30 TID 2. IV diuresis with monitor diuretic response, renal fxn and electrolytes 3. Continue lisinopril 20 mg QD with uptitration as tolerated and Rosuvastatin 20 mg QHS 4. If patient remains in AF with suboptimal rate-control, may consider synchro nized cardioversion as outpatient 5. F/u in office
[2019-11-06] MEDS ORDERED: FUROSEMIDE 20 MG TABLET (FP) PO SCH (10:00)
[2019-11-06] MEDS: INSULIN SLIDING SCALE (NOVOLOG) 1 VIAL SQ SCH ×2 (10:13→17:16)
[2019-11-06] MEDS ORDERED: APIXABAN 5 MG TABLET ONE (10:21)
[2019-11-06] MEDS ORDERED: FUROSEMIDE 40 MG/4 ML INJECTABLE VIAL ONE (10:22)
[2019-11-06] MEDS ORDERED: INSULIN (LEVEMIR) 100 UNITS/ML UNITS SQ ONE (10:22)
[2019-11-06] MEDS ORDERED: LISINOPRIL 20 MG TABLET (FP) ONE (10:22)
[2019-11-06] MEDS: FUROSEMIDE 40 MG/4 ML INJECTABLE VIAL IVPUSH SCH (10:30)
[2019-11-06] MEDS: CARVEDILOL 25 MG TABLET (FP) PO SCH ×2 (10:30→21:08)
[2019-11-06] MEDS: LISINOPRIL 20 MG TABLET (FP) PO SCH (10:30)
[2019-11-06] MEDS: GABAPENTIN 300 MG CAPSULE PO SCH (10:30)
[2019-11-06] MEDS: APIXABAN 5 MG TABLET PO SCH ×2 (10:30→21:08)
--- NOTE | 2019-11-06 10:44 | EKG ---
Test Reason : Blood Pressure : / mmHG Vent. Rate : 113 BPM Atrial Rate : 131 BPM P-R Int : 000 ms QRS Dur : 100 ms QT Int : 306 ms P-R-T Axes : 000 046 155 degrees QTc Int : 419 ms ATRIAL FIBRILLATION WITH RAPID VENTRICULAR RESPONSE MARK SEPTAL INFARCT , AGE UNDETERMINED ABNORMAL ECG WHEN COMPARED WITH ECG OF 24-OCT-2019 09:23, NO SIGNIFICANT CHANGE WAS FOUND Confirmed by MINDY PACHECO MD ([id number]) on 11/06/2019 10:43:36 AM Referred By: Confirmed By:MINDY PACHECO MD
[2019-11-06] MEDS: INSULIN (LEVEMIR) 100 UNITS/ML UNITS SQ SCH (12:24)
--- NOTE | 2019-11-06 12:48 | PN ---
Progress Note, Physician History of Present Illness: Pt seen/ examined chart is reviewed All f/u noted/ appreciated feels better Diuresing hr better controlled - Current Medication List Current Medications: Active Medications Acetaminophen (Tylenol -) 650 mg PO Q6H PRN PRN Reason: PAIN LEVEL 1-5 Apixaban (Eliquis -) 5 mg PO BID [facility] Last Admin: 11/06/19 10:30 Dose: 5 mg Documented by: Carvedilol (Coreg -) 25 mg PO BID [facility] Last Admin: 11/06/19 10:30 Dose: 25 mg Documented by: Diltiazem HCl (Cardizem -) 30 mg PO TID [facility] Last Admin: 11/06/19 05:33 Dose: 30 mg Documented by: Furosemide (Lasix Injection -) 40 mg IVPUSH DAILY [facility] Last Admin: 11/06/19 10:30 Dose: 40 mg Documented by: Gabapentin (Neurontin -) 300 mg PO DAILY [facility] Last Admin: 11/06/19 10:30 Dose: 300 mg Documented by: Insulin Aspart (Novolog Vial Sliding Scale -) [facility]; Protocol Last Admin: 11/06/19 10:13 Dose: Not Given Documented by: Insulin Detemir (Levemir Vial) 15 units SQ DAILY [facility] Last Admin: 11/06/19 12:24 Dose: 15 unit Documented by: Lisinopril (Prinivil) 20 mg PO DAILY [facility] Last Admin: 11/06/19 10:30 Dose: 20 mg Documented by: Rosuvastatin Calcium (Crestor -) 20 mg PO HS [facility] Senna (Senna -) 2 tab PO HS PRN PRN Reason: CONSTIPATION - Objective Vital Signs: Vital Signs Temperature 97.8 F 11/06/19 07:15 Pulse Rate 67 11/06/19 07:15 Respiratory Rate 18 11/06/19 07:15 Blood Pressure 140/69 11/06/19 07:15 O2 Sat by Pulse Oximetry (%) 95 11/06/19 07:15 Constitutional: Yes: No Distress, Calm Neck: Yes: Supple Cardiovascular: Yes: Pulse Irregular Respiratory: Yes: Diminished Gastrointestinal: Yes: Soft Edema: LLE: 1+, RLE: 1+ Neurological: Yes: Alert Labs: CBC, BMP 11/06/19 06:11 11/06/19 06:11 INR, PTT INR 1.73 (0.83-1.09) H 11/05/19 14:55 Problem List - Problems (1) Congestive heart failure (CHF) Code(s): I50.9 - HEART FAILURE, UNSPECIFIED Qualifiers: Heart failure type: diastolic Heart failure chronicity: acute on chronic Qualified Code(s): I50.33 - Acute on chronic diastolic (congestive) heart failure (2) Atrial fibrillation with rapid ventricular response Code(s): I48.91 - UNSPECIFIED ATRIAL FIBRILLATION (3) HTN (hypertension) Code(s): I10 - ESSENTIAL (PRIMARY) HYPERTENSION Qualifiers: Hypertension type: essential hypertension Qualified Code(s): I10 - Essential (primary) hypertension (4) Pulmonary HTN Code(s): I27.20 - PULMONARY HYPERTENSION, UNSPECIFIED Assessment/Plan better i/v lasix continue present care oxygen Cardiology consult appreciated d/w Rn also Will follow
[2019-11-06 20:46] VITALS: BMI 25.7
[2019-11-06] MEDS: ROSUVASTATIN CA 20 MG TABLET (FP) PO SCH (21:08)
[2019-11-07] MEDS: dilTIAZem HCL 30 MG TABLET PO SCH ×3 (05:42→21:08)
[2019-11-07] MEDS: FUROSEMIDE 40 MG/4 ML INJECTABLE VIAL IVPUSH SCH (09:21)
[2019-11-07] MEDS: CARVEDILOL 25 MG TABLET (FP) PO SCH ×2 (09:21→21:08)
[2019-11-07] MEDS: APIXABAN 5 MG TABLET PO SCH ×2 (09:21→21:07)
[2019-11-07] MEDS: INSULIN (LEVEMIR) 100 UNITS/ML UNITS SQ SCH (09:21)
[2019-11-07] MEDS: LISINOPRIL 20 MG TABLET (FP) PO SCH (09:22)
[2019-11-07] MEDS: GABAPENTIN 300 MG CAPSULE PO SCH (09:22)
--- NOTE | 2019-11-07 14:11 | PN ---
Progress Note (short form) - Note Progress Note: admits to eating salty foods and increased fluid intake at home c/o increased urination Slight SOB no chest pain she admits to abdominal pain nausea+ Vital Signs - 24 hr 11/06/19 11/06/19 11/06/19 14:29 17:08 20:27 Temperature 98 F Pulse Rate 75 Pulse Rate [ 98 H 67 Right Radial] Respiratory 26 H 18 18 Rate Blood Pressure 134/79 Blood Pressure 177/97 H 152/80 [Left Arm] O2 Sat by Pulse 96 96 Oximetry (%) 11/06/19 11/06/19 11/07/19 20:49 22:00 02:00 Temperature 97.9 F Pulse Rate 64 85 Pulse Rate [ Right Radial] Respiratory 18 18 Rate Blood Pressure 136/77 Blood Pressure [Left Arm] O2 Sat by Pulse 96 96 Oximetry (%) 11/07/19 11/07/19 05:32 09:29 Temperature 97.8 F 97.5 F L Pulse Rate 110 H 95 H Pulse Rate [ Right Radial] Respiratory 18 22 H Rate Blood Pressure 176/115 H 167/91 Blood Pressure [Left Arm] O2 Sat by Pulse 96 93 L Oximetry (%) Current Medications Generic Name Dose Route Start Last Admin Trade Name Freq PRN Reason Stop Dose Admin Acetaminophen 650 mg 11/05/19 18:48 Tylenol - PO Q6H PRN PAIN LEVEL 1-5 Apixaban 5 mg 11/05/19 22:00 11/07/19 09:21 Eliquis - PO 5 mg BID GEOVANNA Administration Carvedilol 25 mg 11/05/19 22:00 11/07/19 09:21 Coreg - PO 25 mg BID GEOVANNA Administration Diltiazem HCl 30 mg 11/05/19 22:00 11/07/19 14:07 Cardizem - PO 30 mg TID GEOVANNA Administration Furosemide 40 mg 11/05/19 19:00 11/07/19 09:21 Lasix Injection - IVPUSH 40 mg DAILY GE[facility]ANNA Administration Gabapentin 300 mg 11/06/19 10:00 11/07/19 09:22 Neurontin - PO 300 mg DAILY [facility] Administration Insulin Aspart 1 vial 11/06/19 07:00 11/06/19 17:16 Novolog Vial Sliding Scale - SQ Not Given [facility] Protocol Insulin Detemir 15 units 11/06/19 10:00 11/07/19 09:21 Levemir Vial SQ 15 unit DAILY [facility] Administration Lisinopril 20 mg 11/06/19 10:00 11/07/19 09:22 Prinivil PO 20 mg DAILY [facility] Administration Rosuvastatin Calcium 20 mg 11/06/19 22:00 11/06/19 21:08 Crestor - PO 20 mg HS [facility]NA Administration Senna 2 tab 11/05/19 18:41 Senna - PO HS PRN CONSTIPATION Laboratory Results - last 24 hr 11/06/19 11/07/19 17:16 05:44 POC Glucometer 126 139 S1 S2 Irregular Lungs clrackles+ JVD+ Abd- soft, tender epigastrium and RUQ trace edema A/P Continue with iv lasix monitor renal function check sono abd - pt has abdominal pain continue with Eliquis Cardiology input appreciated spoke with daughter today check UA and culture BP elevated-->will adjust meds Problem List - Problems (1) Atrial fibrillation with rapid ventricular response Code(s): I48.91 - UNSPECIFIED ATRIAL FIBRILLATION (2) Chest pain Code(s): R07.9 - CHEST PAIN, UNSPECIFIED (3) Congestive heart failure (CHF) Code(s): I50.9 - HEART FAILURE, UNSPECIFIED Qualifiers: Heart failure type: diastolic Heart failure chronicity: acute on chronic Qualified Code(s): I50.33 - Acute on chronic diastolic (congestive) heart failure (4) Type 2 diabetes mellitus Code(s): E11.9 - TYPE 2 DIABETES MELLITUS WITHOUT COMPLICATIONS Qualifiers: Diabetes mellitus custodial insulin use: with watermelon inspector use Diabetes mellitus complication status: without complication Qualified Code(s): E11.9 - Type 2 diabetes mellitus without complications; Z79.4 - intermediate project manager (current) use of insulin (5) HTN (hypertension) Code(s): I10 - ESSENTIAL (PRIMARY) HYPERTENSION Qualifiers: Hypertension type: essential hypertension Qualified Code(s): I10 - Essential (primary) hypertension
[2019-11-07] MEDS: ROSUVASTATIN CA 20 MG TABLET (FP) PO SCH (21:07)
[2019-11-07 22:51] LABS: EPI CELLS 20 /uL (0-25.1); HYALINE CASTS 2 /uL (0-3.1); PH,URINE 5.5 (5.0-8.0); URINE APPEARANCE CLEAR; URINE BACTERIA 43 /uL (0-1359); URINE BILIRUBIN NEGATIVE (NEGATIVE); URINE COLOR YELLOW; URINE GLUCOSE (UA) NEGATIVE (NEGATIVE); URINE KETONE TRACE (NEGATIVE); URINE LEUK ESTERASE TRACE (NEGATIVE); URINE NITRITE NEGATIVE (NEGATIVE); URINE PROTEIN TRACE (NEGATIVE); URINE RBC 10 /uL (0-23.9); URINE WBC 58 /uL (0-25.8)
[2019-11-08] MEDS: dilTIAZem HCL 30 MG TABLET PO SCH ×2 (06:06→15:10)
[2019-11-08] MEDS: INSULIN SLIDING SCALE (NOVOLOG) 1 VIAL SQ SCH ×2 (06:07→16:51)
[2019-11-08 07:43] LABS: BLOOD UREA NITROGEN 21.4 mg/dL (7-18); CALCIUM 8.4 mg/dL (8.5-10.1); CREATININE 1.1 mg/dL (0.55-1.3); POTASSIUM 3.6 mmol/L (3.5-5.1)
[2019-11-08] MEDS: LISINOPRIL 20 MG TABLET (FP) PO SCH (09:54)
[2019-11-08] MEDS: APIXABAN 5 MG TABLET PO SCH ×2 (09:54→21:25)
[2019-11-08] MEDS: CARVEDILOL 25 MG TABLET (FP) PO SCH ×2 (09:54→21:25)
[2019-11-08] MEDS: FUROSEMIDE 40 MG/4 ML INJECTABLE VIAL IVPUSH SCH (09:54)
[2019-11-08] MEDS: GABAPENTIN 300 MG CAPSULE PO SCH (09:54)
[2019-11-08] MEDS: INSULIN (LEVEMIR) 100 UNITS/ML UNITS SQ SCH (10:31)
--- NOTE | 2019-11-08 14:01 | PN ---
Progress Note (short form) - Note Progress Note: admits to eating salty foods and increased fluid intake at home c/o increased urination has burning urination abdominal pain better Vital Signs - 24 hr 11/07/19 11/07/19 11/08/19 20:46 21:09 02:00 Temperature 98 F 97.9 F Pulse Rate 90 83 Respiratory 20 20 Rate Blood Pressure 143/83 134/70 O2 Sat by Pulse 97 97 Oximetry (%) 11/08/19 11/08/19 11/08/19 06:00 09:00 10:00 Temperature 98.1 F 98 F Pulse Rate 86 100 H Respiratory 20 22 H 22 H Rate Blood Pressure 157/81 161/92 O2 Sat by Pulse 95 95 Oximetry (%) 11/08/19 11/08/19 14:00 18:00 Temperature 98.1 F 97.6 F Pulse Rate 93 H 94 H Respiratory 20 20 Rate Blood Pressure 158/95 152/95 O2 Sat by Pulse Oximetry (%) Current Medications Generic Name Dose Route Start Last Admin Trade Name Freq PRN Reason Stop Dose Admin Acetaminophen 650 mg 11/05/19 18:48 Tylenol - PO Q6H PRN PAIN LEVEL 1-5 Apixaban 5 mg 11/05/19 22:00 11/08/19 09:54 Eliquis - PO 5 mg BID GE[facility]NA Administration Carvedilol 25 mg 11/05/19 22:00 11/08/19 09:54 Coreg - PO 25 mg BID [facility]NA Administration Diltiazem HCl 120 mg 11/08/19 14:30 11/08/19 15:09 Cardizem Cd - PO 120 mg DAILY [facility] Administration Furosemide 20 mg 11/09/19 10:00 Lasix - PO DAILY [facility] Gabapentin 300 mg 11/06/19 10:00 11/08/19 09:54 Neurontin - PO 300 mg DAILY [facility] Administration Insulin Aspart 1 vial 11/06/19 07:00 11/08/19 16:51 Novolog Vial Sliding Scale - SQ Not Given [facility] Protocol Insulin Detemir 15 units 11/06/19 10:00 11/08/19 10:31 Levemir Vial SQ 15 unit DAILY [facility] Administration Lisinopril 20 mg 11/06/19 10:00 11/08/19 09:54 Prinivil PO 20 mg DAILY [facility] Administration Rosuvastatin Calcium 20 mg 11/06/19 22:00 11/07/19 21:07 Crestor - PO 20 mg HS [facility] Administration Senna 2 tab 11/05/19 18:41 Senna - PO HS PRN CONSTIPATION Laboratory Results - last 24 hr 11/07/19 11/08/19 11/08/19 22:38 05:52 06:03 Sodium 144 Potassium 3.6 Chloride 108 H Carbon Dioxide 30 Anion Gap 6 L BUN 21.4 H Creatinine 1.1 Est GFR (CKD-EPI)AfAm 56.48 Est GFR (CKD-EPI)NonAf 48.73 POC Glucometer 112 Random Glucose 108 H Calcium 8.4 L Urine Color Yellow Urine Appearance Clear Urine pH 5.5 Ur Specific [place] 1.022 Urine Protein Trace Urine Glucose (UA) Negative Urine Ketones Trace H Urine Blood 1+ H Urine Nitrite Negative Urine Bilirubin Negative Urine Urobilinogen 1.0 Ur Leukocyte Esterase Trace Urine WBC (Auto) 58 Urine RBC (Auto) 10 Urine Casts (Auto) 2 U Epithel Cells (Auto) 20 Urine Bacteria (Auto) 43 11/08/19 11/08/19 11:43 16:46 Sodium Potassium Chloride Carbon Dioxide Anion Gap BUN Creatinine Est GFR (CKD-EPI)AfAm Est GFR (CKD-EPI)NonAf POC Glucometer 294 130 Random Glucose Calcium Urine Color Urine Appearance Urine pH Ur Specific [place] Urine Protein Urine Glucose (UA) Urine Ketones Urine Blood Urine Nitrite Urine Bilirubin Urine Urobilinogen Ur Leukocyte Esterase Urine WBC (Auto) Urine RBC (Auto) Urine Casts (Auto) U Epithel Cells (Auto) Urine Bacteria (Auto) S1 S2 Irregular Lungs clrackles+ JVD+ Abd- soft, NT trace edema A/P Continue with iv lasix-->change to po in AM monitor renal function sono abd - negative continue with Eliquis Cardiology input appreciated check UA and culture-- >appears to be UTI-- start ceftriaxone BP elevated-->will adjust meds Problem List - Problems (1) Atrial fibrillation with rapid ventricular response Code(s): I48.91 - UNSPECIFIED ATRIAL FIBRILLATION (2) Chest pain Code(s): R07.9 - CHEST PAIN, UNSPECIFIED (3) Congestive heart failure (CHF) Code(s): I50.9 - HEART FAILURE, UNSPECIFIED Qualifiers: Heart failure type: diastolic Heart failure chronicity: acute on chronic Qualified Code(s): I50.33 - Acute on chronic diastolic (congestive) heart failure (4) Type 2 diabetes mellitus Code(s): E11.9 - TYPE 2 DIABETES MELLITUS WITHOUT COMPLICATIONS Qualifiers: Diabetes mellitus fci insulin use: with fci use Diabetes mellitus complication status: without complication Qualified Code(s): E11.9 - Type 2 diabetes mellitus without complications; Z79.4 - rn long term care (current) use of insulin (5) HTN (hypertension) Code(s): I10 - ESSENTIAL (PRIMARY) HYPERTENSION Qualifiers: Hypertension type: essential hypertension Qualified Code(s): I10 - Essential (primary) hypertension
--- NOTE | 2019-11-08 14:04 | PN ---
Progress Note, Physician History of Present Illness: Shortness of breath, palpitations, chest pain improved with rate-control, BP control and diuresis. - Current Medication List Current Medications: Active Medications Acetaminophen (Tylenol -) 650 mg PO Q6H PRN PRN Reason: PAIN LEVEL 1-5 Apixaban (Eliquis -) 5 mg PO BID [facility] Last Admin: 11/08/19 09:54 Dose: 5 mg Documented by: Carvedilol (Coreg -) 25 mg PO BID [facility] Last Admin: 11/08/19 09:54 Dose: 25 mg Documented by: Diltiazem HCl (Cardizem -) 30 mg PO TID [facility] Last Admin: 11/08/19 06:06 Dose: Not Given Documented by: Furosemide (Lasix Injection -) 40 mg IVPUSH DAILY [facility] Last Admin: 11/08/19 09:54 Dose: 40 mg Documented by: Gabapentin (Neurontin -) 300 mg PO DAILY [facility] Last Admin: 11/08/19 09:54 Dose: 300 mg Documented by: Insulin Aspart (Novolog Vial Sliding Scale -) [facility]; Protocol Last Admin: 11/08/19 06:07 Dose: Not Given Documented by: Insulin Detemir (Levemir Vial) 15 units SQ DAILY [facility] Last Admin: 11/08/19 10:31 Dose: 15 unit Documented by: Lisinopril (Prinivil) 20 mg PO DAILY [facility] Last Admin: 11/08/19 09:54 Dose: 20 mg Documented by: Rosuvastatin Calcium (Crestor -) 20 mg PO HS [facility] Last Admin: 11/07/19 21:07 Dose: 20 mg Documented by: Senna (Senna -) 2 tab PO HS PRN PRN Reason: CONSTIPATION - Objective Vital Signs: Vital Signs Temperature 98 F 11/08/19 10:00 Pulse Rate 100 H 11/08/19 10:00 Respiratory Rate 22 H 11/08/19 10:00 Blood Pressure 161/92 11/08/19 10:00 O2 Sat by Pulse Oximetry (%) 95 11/08/19 10:00 Constitutional: Yes: No Distress, Calm, Thin Neck: Yes: Supple Cardiovascular: Yes: Pulse Irregular Respiratory: Yes: Regular, CTA Bilaterally Gastrointestinal: Yes: Normal Bowel Sounds, Soft Edema: No Labs: CBC, BMP 11/06/19 06:11 11/08/19 05:52 INR, PTT INR 1.73 (0.83-1.09) H 11/05/19 14:55 - ....Imaging Ultrasound: Report Reviewed (Abd US: s/p tylor, right effusion) EKG: Report Reviewed (Tele: Rapid afib) Problem List - Problems (1) Atrial fibrillation with rapid ventricular response Code(s): I48.91 - UNSPECIFIED ATRIAL FIBRILLATION (2) Congestive heart failure (CHF) Code(s): I50.9 - HEART FAILURE, UNSPECIFIED Qualifiers: Heart failure type: diastolic Heart failure chronicity: acute on chronic Qualified Code(s): I50.33 - Acute on chronic diastolic (congestive) heart failure (3) Anemia Code(s): D64.9 - ANEMIA, UNSPECIFIED Qualifiers: Anemia type: unspecified type Qualified Code(s): D64.9 - Anemia, unspecified (4) HTN (hypertension) Code(s): I10 - ESSENTIAL (PRIMARY) HYPERTENSION Qualifiers: Hypertension type: essential hypertension Qualified Code(s): I10 - Essential (primary) hypertension (5) Hypercholesterolemia Code(s): E78.00 - PURE HYPERCHOLESTEROLEMIA, UNSPECIFIED (6) Pulmonary HTN Code(s): I27.20 - PULMONARY HYPERTENSION, UNSPECIFIED (7) Type 2 diabetes mellitus Code(s): E11.9 - TYPE 2 DIABETES MELLITUS WITHOUT COMPLICATIONS Qualifiers: Diabetes mellitus usp insulin use: with usp use Diabetes mellitus complication status: without complication Qualified Code(s): E11.9 - Type 2 diabetes mellitus without complications; Z79.4 - intermodal owner operator truck driver (current) use of insulin Assessment/Plan 10/24/2019 Echo: Normal LV size with mild cLVH, normal LVEF 55-60%, mild LAE, mi ld-mod TR RVSP 55 mmHg Leximibi: No ischemia, LVEF 41% possible gating artifact affecting LV assessment 1. Persistent atrial fibrillation with RVR [id number] score of 5 2. Acute on chronic diastolic LV failure with pleural effusion resolving 3. HTN 4. Type 2 DM 5. 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 HDL PLAN: 1. Continue Eliquis 5 mg BID, Carvedilol 25 mg BID, added Cardizem CD 120 qd 2. Resume oral diuresis with monitor diuretic response, renal fxn and electrolytes 3. Continue lisinopril 20 mg QD with uptitration as tolerated and Rosuvastatin 20 mg QHS 4. If patient remains in AF with suboptimal rate-control, may consider synchronized cardioversion as outpatient 5. F/u in office
[2019-11-08] MEDS ORDERED: cefTRIAXone SODIUM 1 GM VIAL ONE (19:01)
[2019-11-08] MEDS ORDERED: DEXTROSE 5%-WATER - 50 ML IVPB ONE (19:01)
[2019-11-08] MEDS: POLYETHYLENE GLYCOL 3350 119 GM BTL PO SCH (19:04)
[2019-11-08] MEDS: CEFTRIAXONE 1 GM in DEXTROSE 5%-WATER - 50 ML IVPB SCH (19:04)
[2019-11-08] MEDS: ROSUVASTATIN CA 20 MG TABLET (FP) PO SCH (21:25)
[2019-11-09] MEDS: INSULIN SLIDING SCALE (NOVOLOG) 1 VIAL SQ SCH (06:40)
[2019-11-09 07:59] LABS: HEMATOCRIT 30.4 % (32.4-45.2); MCH 28.2 pg (25.7-33.7); MEAN CELL VOLUME 85.4 fl (80-96); PLATELET COUNT 129 K/MM3 (134-434); RBC 3.56 M/mm3 (3.60-5.2); RDW 14.5 % (11.6-15.6); WHITE BLOOD COUNT 6.1 K/mm3 (4.0-10.0)
[2019-11-09 08:30] LABS: POTASSIUM 3.8 mmol/L (3.5-5.1)
[2019-11-09 09:01] LABS: ALBUMIN 3.7 g/dl (3.4-5.0); BILIRUBIN,TOTAL 0.6 mg/dL (0.2-1); BLOOD UREA NITROGEN 22.6 mg/dL (7-18); CALCIUM 8.8 mg/dL (8.5-10.1); CREATININE 1.1 mg/dL (0.55-1.3); TOT PROT 6.9 g/dl (6.4-8.2)
[2019-11-09] MEDS ORDERED: cefTRIAXone SODIUM 1 GM VIAL ONE (09:13)
[2019-11-09] MEDS: CARVEDILOL 25 MG TABLET (FP) PO SCH (09:24)
[2019-11-09] MEDS: CEFTRIAXONE 1 GM in DEXTROSE 5%-WATER - 50 ML IVPB SCH (09:24)
[2019-11-09] MEDS: APIXABAN 5 MG TABLET PO SCH (09:24)
[2019-11-09] MEDS: GABAPENTIN 300 MG CAPSULE PO SCH (09:25)
--- NOTE | 2019-11-09 09:29 | PN ---
Progress Note, Physician History of Present Illness: Shortness of breath, palpitations, chest pain resolved with rate-control, BP control and diuresis. - Current Medication List Current Medications: Active Medications Acetaminophen (Tylenol -) 650 mg PO Q6H PRN PRN Reason: PAIN LEVEL 1-5 Apixaban (Eliquis -) 5 mg PO BID [facility] Last Admin: 11/08/19 21:25 Dose: 5 mg Documented by: Carvedilol (Coreg -) 25 mg PO BID [facility] Last Admin: 11/08/19 21:25 Dose: 25 mg Documented by: Diltiazem HCl (Cardizem Cd -) 120 mg PO DAILY [facility] Last Admin: 11/08/19 15:09 Dose: 120 mg Documented by: Furosemide (Lasix -) 20 mg PO DAILY [facility] Gabapentin (Neurontin -) 300 mg PO DAILY [facility] Last Admin: 11/08/19 09:54 Dose: 300 mg Documented by: Ceftriaxone Sodium 1 gm/ (Dextrose) 50 mls @ 100 mls/hr IVPB DAILY [facility] Last Admin: 11/08/19 19:04 Dose: 100 mls/hr Documented by: Insulin Aspart ([facility] Vial Sliding [facility] -) [facility]; Protocol Last Admin: 11/09/19 06:40 Dose: Not Given Documented by: Insulin Detemir (Levemir Vial) 15 units SQ DAILY [facility] Last Admin: 11/08/19 10:31 Dose: 15 unit Documented by: Lisinopril (Prinivil) 40 mg PO DAILY [facility] Polyethylene Glycol (Miralax (For Daily Use) -) 17 gm PO DAILY [facility] Last Admin: 11/08/19 19:04 Dose: 17 gm Documented by: Rosuvastatin Calcium (Crestor -) 20 mg PO HS [facility] Last Admin: 11/08/19 21:25 Dose: 20 mg Documented by: Senna (Senna -) 2 tab PO HS PRN PRN Reason: CONSTIPATION - Objective Vital Signs: Vital Signs Temperature 98.2 F 11/09/19 06:00 Pulse Rate 59 L 11/09/19 06:00 Respiratory Rate 18 11/09/19 06:00 Blood Pressure 152/74 11/09/19 06:00 O2 Sat by Pulse Oximetry (%) 94 L 11/09/19 06:00 Constitutional: Yes: No Distress, Calm, Thin Neck: Yes: Supple Cardiovascular: Yes: Pulse Irregular Respiratory: Yes: Regular, CTA Bilaterally Gastrointestinal: Yes: Soft, Hypoactive Bowel Sounds Edema: No Labs: CBC, BMP 11/09/19 06:30 11/09/19 06:30 INR, PTT INR 1.73 (0.83-1.09) H 11/05/19 14:55 - ....Imaging EKG: Report Reviewed (Tele: Rate-controlled afib) Problem List - Problems (1) Atrial fibrillation with rapid ventricular response Code(s): I48.91 - UNSPECIFIED ATRIAL FIBRILLATION (2) Congestive heart failure (CHF) Code(s): I50.9 - HEART FAILURE, UNSPECIFIED Qualifiers: Heart failure type: diastolic Heart failure chronicity: acute on chronic Qualified Code(s): I50.33 - Acute on chronic diastolic (congestive) heart failu re (3) Anemia Code(s): D64.9 - ANEMIA, UNSPECIFIED Qualifiers: Anemia type: unspecified type Qualified Code(s): D64.9 - Anemia, unspecified (4) HTN (hypertension) Code(s): I10 - ESSENTIAL (PRIMARY) HYPERTENSION Qualifiers: Hypertension type: essential hypertension Qualified Code(s): I10 - [place]entia l (primary) hypertension (5) Hypercholesterolemia Code(s): E78.00 - PURE HYPERCHOLESTEROLEMIA, UNSPECIFIED (6) Pulmonary HTN Code(s): I27.20 - PULMONARY HYPERTENSION, UNSPECIFIED (7) Type 2 diabetes mellitus Code(s): E11.9 - TYPE 2 DIABETES MELLITUS WITHOUT COMPLICATIONS Qualifiers: Diabetes mellitus mcc insulin use: with mcc use Diabetes mellitus complication status: without complication Qualified Code(s): E11.9 - Type 2 diabetes mellitus without complications; Z79.4 - [facility] (current) use of insulin Assessment/Plan 10/24/2019 Echo: Normal LV size with mild cLVH, normal LVEF 55-60%, mild LAE, mild-mod TR RVSP 55 mmHg Leximibi: No ischemia, LVEF 41% possible gating artifact affecting LV assessment 1. Persistent atrial fibrillation with RVR [id number] score of 5 2. Acute on chronic diastolic LV failure with pleural effusion resolving 3. HTN 4. Type 2 DM 5. 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 HDL PLAN: 1. Continue Eliquis 5 mg BID, Carvedilol 25 mg BID and Cardizem CD 120 qd 2. Continue oral diuresis with monitor diuretic response, renal fxn and electrolytes 3. Continue lisinopril 40 mg QD with uptitration as tolerated and Rosuvastatin 20 mg QHS 4. If patient remains in AF with suboptimal rate-control, may consider synchronized cardioversion as outpatient 5. Complete abx course 6. F/u in office
[2019-11-09] MEDS: POLYETHYLENE GLYCOL 3350 119 GM BTL PO SCH (09:35)
[2019-11-09] MEDS: INSULIN (LEVEMIR) 100 UNITS/ML UNITS SQ SCH (09:41)
[2019-11-09] MEDS ORDERED: FUROSEMIDE 20 MG TABLET (FP) PO SCH (10:00)
[2019-11-09] MEDS ORDERED: LISINOPRIL 20 MG TABLET (FP) PO SCH (10:00)
--- NOTE | 2019-11-09 12:06 | DS ---
Physical Examination Vital Signs: Vital Signs Temperature 98.2 F 11/09/19 06:00 Pulse Rate 59 L 11/09/19 06:00 Respiratory Rate 18 11/09/19 06:00 Blood Pressure 152/74 11/09/19 06:00 O2 Sat by Pulse Oximetry (%) 94 L 11/09/19 06:00 Constitutional: Yes: No Distress, Calm Cardiovascular: Yes: Pulse Irregular Respiratory: Yes: Diminished Gastrointestinal: Yes: Normal Bowel Sounds, Soft. No: Tenderness Edema: No Labs: CBC, BMP 11/09/19 06:30 11/09/19 06:30 Discharge Summary Problems reviewed: Yes Reason For Visit: CHEST PAIN, ATRIAL FIBRILLATION WITH RAPID Current Active Problems Atrial fibrillation with rapid ventricular response (Acute) Chest pain (Acute) Congestive heart failure (CHF) (Acute) Type 2 diabetes mellitus (Acute) Hospital Course: History of Present Illness: Case discussed with Er resident Chart is reviewed Pt known to me from recent admission Per Er Notes Vicki Aguilar is a 74 y/o female with PMH significant for HTN, DM, TIA, presenting today with heart palpitations and shortness of breath. She was seen here 1 week ago for similar symptoms and admitted and diagnosed with new onset a-fib and pulmonary edema. Started on coreg and eliquis and lasix which she has been taking consistently every day. Reports that she started having shortness of breath and palpitations last night that worsened today. Reports mild chest pain yesterday. No headache/dizziness. No abdominal pain. No leg swelling. No loss of consciousness. Pt found in rapid afib given few doses of i/v metoprolol with slowing down pt will be admitted to tele cxr also noted-- congestive changes persist BNP also elevated On lasix 20 mg dose-- will give i/v lasix HOSPITAL COURSE Pt seen by cardiology Was on IV Lasix daily Added Cardizem cd for rate control Lisinopril increased for better BP control Found to have UTI-- started on IV Ceftriaxone Had abdominal pain due to constipation sono abd-- negative for acute pathology Rate is controlled she is stable for dc home Will need follow up with cardiology-- may consider Watchmann procedure to help with rate control spoke with daughter today Condition: Stable - Instructions Diet, Activity, Other Instructions: take Furosemide 20mg twice a day till pt follows up with cardiology Referrals: Maddison Vasquez MD [Staff Physician] - 1 Week Mikal Hauser MD [Staff Physician] - 2 Weeks - Home Medications Comprehensive Discharge Medication List: Ambulatory Orders Alendronate Sodium [Fosamax] 1 tab PO WEEKLY 10/22/19 Gabapentin [Neurontin] 300 mg PO DAILY 10/22/19 Insulin Detemir [Levemir Flextouch] 15 unit SQ DAILY 10/22/19 Metformin HCl [Glucophage] 1,000 mg PO DAILY 10/22/19 Rosuvastatin [Crestor -] 20 mg PO DAILY 10/22/19 Apixaban [Eliquis -] 5 mg PO BID #60 tablet 10/27/19 Carvedilol [Coreg -] 25 mg PO BID #60 tablet 10/27/19 Furosemide [Lasix -] 20 mg PO DAILY 30 Days #30 tablet 10/27/19 Lisinopril [Prinivil] 20 mg PO DAILY #30 tablet 10/27/19 Sennosides [Senna -] 2 tab PO HS PRN tablet 10/27/19
[2019-11-09 14:38] VITALS: BP 123/86; PULSE 97; TEMP 98.1
== END 2019-11-09 17:46 | disposition home or self-care (01) | DRG 308 ==
LOC: JER 14:00 → JERBED 16:07 → J4W 11-06 20:24
PROVIDERS: ADMIT Internal Medicine; ATTEND Internal Medicine
DX: I48.19 Other persistent atrial fibrillation (principal); I50.33 Acute on chronic diastolic (congestive) heart failure; N39.0 Urinary tract infection, site not specified; I11.0 Hypertensive heart disease with heart failure; E11.9 Type 2 diabetes mellitus without complications; E78.5 Hyperlipidemia, unspecified; D64.9 Anemia, unspecified; I34.0 Nonrheumatic mitral (valve) insufficiency; I07.1 Rheumatic tricuspid insufficiency; I27.20 Pulmonary hypertension, unspecified; R00.2 Palpitations; R07.9 Chest pain, unspecified
CPT/HCPCS: 36415; 71045-TC-FY; 71046-TC-FY; 76700-TC; 80048; 80053; 81003; 82550; 82962; 83036; 83735; 83880; 84443; 84484; 85025; 85027; 85610; 85730; 87086; 93005; 93010; 99285-25; U0003

== ENCOUNTER 2019-11-27 04:37 | Day surgery (SDC) | payer BC ==
[2019-11-24 15:48] VITALS: BMI 21.9
--- OUTSIDE RECORDS SUMMARY | 2019-11-27 04:41 | XMS ---
:1945 Author Organization [facility] Care Team Providers Name Role Phone JIN SANCHEZ, [id number] Unavailable Unavailable MATT LOGAN Unavailable Unavailable ROSALVA MARTINS Unavailable Unavailable Re-disclosure Warning The records that you are about to access may contain information from federally- assisted alcohol or drug abuse programs. If such information is present, then the following federally mandated warning applies: This information has been disclosed to you from records protected by federal confidentiality rules (42 CFR part 2). The federal rules prohibit you from making any further disclosure of this information unless further disclosure is expressly permitted by the written consent of the person to whom it pertains or as otherwise permitted by 42 CFR part 2. A general authorization for the release of medical or other information is NOT sufficient for this purpose. The Federal rules restrict any use of the information to criminally investigate or prosecute any alcohol or drug abuse patient.The records that you are about to access may contain highly sensitive health information, the redisclosure of which is protected by Article 27-F of the [facility] Public Health law. If you continue you may haveaccess to information: Regarding HIV / AIDS; Provided by facilities licensed or operated by the [facility] Office of Mental Health; or Provided by the [facility] Office for People With Developmental Disabilities. If such information is present, then the following [facility] mandated warning applies: This information has been disclosed to you from confidential records which are protected by state law. State law prohibits you from making any further disclosure of this information without the specific written consent of the person to whom it pertains, or as otherwise permitted by law. Any unauthorized further disclosure in violation of state law may result in a fine or fpc sentence or both. A general authorization for the release of medical or other information is NOT sufficient authorization for further disclosure. Encounters Encounter Providers Location Date Indications Data Source(s ) Outpatient Attender: ELIEZER, 12/09/2018 D32.9 [facility] ROSALVAAdmitter: 10:23:00 AM Friend Traveler are [employer] HUMAYUNReferrer: ROSALVA MARTINS D32.9 Outpatient Attender: [id number] 03/15/2018 G93.9 R25.9 [facility] JIN SANCHEZAdmitter: 10:26:00 AM [facility] G04.90 Health Care [id number] LAURA [facility] katrina ABDIReferrer: ROSALVA MARTINS G93.9 R25.9 G04.90 Insurance Providers Payer name Policy type Policy ID Covered Covered green party's Policy P chloe / Coverage green party ID relationship to [employer] Inf ormation type quiles PPO [id number] SP [id number] MEDICARE [id number] SP [id number] PPO [id number] SP [id number] Problems, Conditions, and Diagnoses Code Display Name Description Problem Type Effective Dates Data Source(s) 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 and reported by [facility]. ID Date Data Source [id number] 11/05/2019 04:25:00 PM EDT [facility] Name Value Range Interpretation Description Data Sup porting Code Source(s) Document(s ) SARS [facility] coronavirus 2 RNA This lab was ordered by [facility] and reported by [facility]. ID Date Data Source [id number] 10/22/2019 01:50:00 PM EDT [facility] Name Value Range Interpretation Description Data Sup porting Code Source(s) Document(s ) SARS [facility] coronavirus 2 RNA This lab was ordered by [facility] and reported by [facility]. Procedure
[2019-11-27 12:22] VITALS: TEMP 98.1
[2019-11-27 13:14] VITALS: BP 163/77; PULSE 80
--- NOTE | 2019-11-27 16:55 | EKG ---
Test Reason : Blood Pressure : / mmHG Vent. Rate : 081 BPM Atrial Rate : 081 BPM P-R Int : 352 ms QRS Dur : 108 ms QT Int : 400 ms P-R-T Axes : 031 025 135 degrees QTc Int : 464 ms SINUS RHYTHM WITH 1ST DEGREE A-V BLOCK INCOMPLETE LEFT BUNDLE BRANCH BLOCK T WAVE ABNORMALITY, CONSIDER INFEROLATERAL ISCHEMIA ABNORMAL ECG WHEN COMPARED WITH ECG OF 05-NOV-2019 14:16, SINUS RHYTHM HAS REPLACED ATRIAL FIBRILLATION VENT. RATE HAS DECREASED Confirmed by VERN PACHECO MD ([id number]) on 11/27/2019 4:54:34 PM Referred By: Vern Pacheco Confirmed By:VERN PACHECO MD
== END 2019-11-27 13:09 | disposition home or self-care (01) ==
LOC: JASU-ENDO 04:37
PROVIDERS: ATTEND Internal Medicine Cardiovascular Disease
PROC: 5A2204Z Restoration of Cardiac Rhythm, Single (ICD-10-PCS; principal; 2019-11-27 12:30)
DX: I48.19 Other persistent atrial fibrillation (principal); I10 Essential (primary) hypertension; E11.9 Type 2 diabetes mellitus without complications; Z79.84 Long term (current) use of oral hypoglycemic drugs
CPT/HCPCS: 92960; 93005; 93010

== ENCOUNTER 2021-05-25 00:33 | Emergency (ER) | payer BC, OTHER ==
[2021-05-25 01:05] VITALS: BMI 28.3
[2021-05-25 01:30] LABS: INR 1.15 (0.83-1.09); PROTHROMBIN TIME (PATIENT) 13.2 SEC (9.7-13.0)
[2021-05-25 01:33] LABS: ACTIVATED PTT 27.5 SECONDS (25.2-36.5)
[2021-05-25] MEDS ORDERED: ACETAMINOPHEN 1000 MG/100 ML BAG IVPB ONE (01:34)
[2021-05-25] MEDS ORDERED: METOCLOPRAMIDE HCL INJECTION 10 MG/2 ML VIAL IVPUSH ONE (01:34)
[2021-05-25 01:38] LABS: BASO % 0.7 % (0-2.0); EOS % 2.6 % (0-4.5); HEMATOCRIT 34.2 % (32.4-45.2); HEMOGLOBIN 11.3 GM/dL (10.7-15.3); LYMPH % 22.1 % (8-40); MCH 27.1 pg (25.7-33.7); MCHC 33.2 g/dl (32.0-36.0); MEAN CELL VOLUME 81.9 fl (80-96); MEAN PLT VOLUME 11.2 fl (7.5-11.1); MONO % 6.3 % (3.8-10.2); NEUT % 68.3 % (42.8-82.8); PLATELET COUNT 117 10^3/uL (134-434); RBC 4.18 M/mm3 (3.60-5.2); RDW 15.1 % (11.6-15.6); WHITE BLOOD COUNT 6.9 K/mm3 (4.0-10.0)
[2021-05-25 01:53] LABS: ALBUMIN 3.2 g/dl (3.4-5.0)
[2021-05-25 01:56] LABS: CREATININE 1.3 mg/dL (0.55-1.3)
[2021-05-25 01:57] LABS: BILIRUBIN,TOTAL 0.4 mg/dL (0.2-1); TOT PROT 7.2 g/dl (6.4-8.2)
[2021-05-25] MEDS ORDERED: ACETAMINOPHEN INJECTION 100 ML IVPB ONE (02:39)
[2021-05-25] MEDS ORDERED: METOCLOPRAMIDE HCL INJECTION 10 MG/2 ML VIAL ONE (02:39)
[2021-05-25 05:33] VITALS: BP 160/83; PULSE 76; TEMP 97.5
== END 2021-05-25 05:56 | disposition short-term general hospital (02) ==
LOC: JER 00:33
PROC: 3E033GC Introduction of Other Therapeutic Substance into Peripheral Vein, Percutaneous Approach (ICD-10-PCS; principal; 2021-05-25)
DX: G93.89 Other specified disorders of brain (principal)
CPT/HCPCS: 36415; 70450-TC; 72125-TC; 80053; 85025; 85610; 85730; 86850; 86900; 86901; 93005; 93010; 99291; 99292

== ENCOUNTER 2023-05-15 23:30 | Inpatient (IN) | payer OTHER, BC ==
[2023-05-16 01:09] LABS: HEMATOCRIT 34.6 % (32.4-45.2); HEMOGLOBIN 11.4 GM/dL (10.7-15.3); MCH 27.5 pg (25.7-33.7); MEAN CELL VOLUME 83.2 fl (80-96); PLATELET COUNT 136 10^3/uL (134-434); RBC 4.16 M/mm3 (3.60-5.2); RDW 17.4 % (11.6-15.6); WHITE BLOOD COUNT 10.2 K/mm3 (4.0-10.0)
[2023-05-16] MEDS ORDERED: ALBUTEROL SO4 2.5/IPRATROPIUM 0.5 INH SOL 3 ML VIAL.NEB. NEB ONE (01:10)
[2023-05-16] MEDS ORDERED: INSULIN REGULAR HUMAN 100 UNITS/ML *VIAL ONE (01:10)
[2023-05-16] MEDS ORDERED: niCARdipine HCL 25 MG/10 ML AMPUL IVPB ONE ×2 (01:10→06:26)
[2023-05-16 01:11] LABS: VENOUS BASE EXCESS 0.6 mmol/L (-2-2); VENOUS O2 SATURATION 79.1 % (70-80); VENOUS PCO2 49.1 mmHg (38-52); VENOUS PH 7.354 (7.310-7.410)
[2023-05-16] MEDS: ALBUTEROL SO4 2.5/IPRATROPIUM 0.5 INH SOL 3 ML VIAL.NEB. NEB SCH (01:14)
[2023-05-16 01:15] LABS: EPI CELLS 15 /uL (0-25.1); HYALINE CASTS 1 /uL (0-3.1); URINE APPEARANCE CLEAR; URINE BACTERIA 26 /uL (0-1359); URINE BILIRUBIN NEGATIVE (NEGATIVE); URINE COLOR YELLOW; URINE GLUCOSE (UA) 3+ (NEGATIVE); URINE KETONE NEGATIVE (NEGATIVE); URINE LEUK ESTERASE NEGATIVE (NEGATIVE); URINE NITRITE NEGATIVE (NEGATIVE); URINE PROTEIN 1+ (NEGATIVE); URINE RBC 13 /uL (0-23.9); URINE UROBILINOGEN 0.2 mg/dL (0.2-1.0); URINE WBC 14 /uL (0-25.8)
[2023-05-16 01:17] LABS: INR 1.26 (0.83-1.09); PROTHROMBIN TIME (PATIENT) 14.6 SEC (9.7-13.0)
[2023-05-16] MEDS: NICARDIPINE 25 MG in DEXTROSE 5%-WATER - 240 ML IVPB SCH (01:19)
[2023-05-16 01:20] LABS: ACTIVATED PTT 27.4 SECONDS (25.2-36.5)
[2023-05-16] MEDS: INSULIN REGULAR HUMAN 100 UNITS/ML *VIAL IVPUSH ONE (01:24)
[2023-05-16 01:26] LABS: CHLORIDE 98 mmol/L (98-107); POTASSIUM 3.8 mmol/L (3.5-5.1); SODIUM 137 mmol/L (136-145)
[2023-05-16 01:29] LABS: CALCIUM 8.6 mg/dL (8.5-10.1)
[2023-05-16 01:30] LABS: ALBUMIN 3.5 g/dl (3.4-5.0); ANION GAP 12 mmol/L (4-13); BLOOD UREA NITROGEN 27.2 mg/dL (7-18); CO2 26 mmol/L (21-32)
[2023-05-16 01:32] LABS: CHOLESTEROL 137 mg/dL (50-200); SGOT/AST 15 U/L (15-37)
[2023-05-16 01:33] LABS: CREATININE 1.2 mg/dL (0.55-1.3); SGPT/ALT 23 U/L (13-61)
[2023-05-16 01:34] LABS: BILIRUBIN,TOTAL 0.7 mg/dL (0.2-1); LDL CHOLESTEROL (ONLY SJRH) 80 mg/dL (5-100); TOT PROT 7.6 g/dl (6.4-8.2)
[2023-05-16 01:35] LABS: ALK PHOS 82 U/L (45-117); HDL CHOLESTEROL 51 mg/dL (40-60)
[2023-05-16 01:36] LABS: LACTIC ACID 3.1 mmol/L (0.4-2.0)
[2023-05-16 01:37] LABS: THROAT:GRP A STREP NOT DETECTED (NOTDETECTED)
[2023-05-16 01:41] LABS: GLUCOSE,RANDOM 486 mg/dL (74-106)
[2023-05-16] MEDS: SODIUM CHLORIDE 1,000 ML IV SCH ×2 (03:40→05:49)
[2023-05-16 04:09] LABS: ANISOCYTOSIS 1+; ROULEAU 2+
[2023-05-16 07:39] LABS: HEMOGLOBIN 10.6 GM/dL (10.7-15.3); MCH 27.6 pg (25.7-33.7); MCHC 33.2 g/dl (32.0-36.0); MEAN CELL VOLUME 83.1 fl (80-96); MEAN PLT VOLUME 11.4 fl (7.5-11.1); PLATELET COUNT 130 10^3/uL (134-434); RBC 3.85 M/mm3 (3.60-5.2); WHITE BLOOD COUNT 10.2 K/mm3 (4.0-10.0)
[2023-05-16 07:40] LABS: INR 1.27 (0.83-1.09); PROTHROMBIN TIME (PATIENT) 14.7 SEC (9.7-13.0)
[2023-05-16 07:58] LABS: POTASSIUM 3.5 mmol/L (3.5-5.1)
[2023-05-16 08:02] LABS: ALBUMIN 3.1 g/dl (3.4-5.0); BLOOD UREA NITROGEN 27.4 mg/dL (7-18); CALCIUM 8.9 mg/dL (8.5-10.1); MAGNESIUM 1.8 mg/dL (1.8-2.4)
[2023-05-16 08:05] LABS: PHOSPHOROUS 1.9 mg/dL (2.5-4.9)
[2023-05-16 08:06] LABS: CREATININE 1.1 mg/dL (0.55-1.3)
[2023-05-16 08:07] LABS: BILIRUBIN,TOTAL 0.7 mg/dL (0.2-1); TOT PROT 6.8 g/dl (6.4-8.2)
[2023-05-16] MEDS: INSULIN ASPART SLIDING SCALE (NOVOLOG) 1 VIAL SQ SCH (09:18)
[2023-05-16] MEDS: CARVEDILOL 25 MG TABLET (FP) PO SCH (09:19)
[2023-05-16] MEDS: APIXABAN 5 MG TABLET PO SCH (09:19)
[2023-05-16] MEDS: LOSARTAN 50MG/HCTZ 12.5MG 1 TAB PO SCH (09:19)
[2023-05-16] MEDS ORDERED: PATIENT'S OWN MEDICATION (NON-FORMULARY) (Telmisartan/Hydrochlorothiazid [Telmisartan-Hctz PO SCH (10:00)
[2023-05-16] MEDS ORDERED: APIXABAN 5 MG TABLET ONE (22:14)
[2023-05-16] MEDS ORDERED: CARVEDILOL 25 MG TABLET (FP) ONE (22:15)
[2023-05-16] MEDS ORDERED: INSULIN (NOVOLOG) ASPART 100 UNITS/ML 10ML VIAL ONE (22:27)
[2023-05-17] MEDS ORDERED: INSULIN (NOVOLOG) ASPART 100 UNITS/ML 10ML VIAL ONE ×2 (07:22→16:28)
[2023-05-17 07:44] LABS: BASO % 0.1 % (0-2.0); EOS % 1.2 % (0-4.5); HEMATOCRIT 31.5 % (32.4-45.2); HEMOGLOBIN 10.3 GM/dL (10.7-15.3); LYMPH % 9.1 % (8-40); MCH 27.4 pg (25.7-33.7); MCHC 32.7 g/dl (32.0-36.0); MEAN CELL VOLUME 83.7 fl (80-96); MEAN PLT VOLUME 11.1 fl (7.5-11.1); MONO % 7.3 % (3.8-10.2); NEUT % 82.3 % (42.8-82.8); PLATELET COUNT 116 10^3/uL (134-434); RBC 3.77 M/mm3 (3.60-5.2); RDW 16.9 % (11.6-15.6); WHITE BLOOD COUNT 9.5 K/mm3 (4.0-10.0)
[2023-05-17 08:00] LABS: POTASSIUM 3.4 mmol/L (3.5-5.1)
[2023-05-17 08:03] LABS: ALBUMIN 2.8 g/dl (3.4-5.0)
[2023-05-17 08:04] LABS: BLOOD UREA NITROGEN 26.7 mg/dL (7-18)
[2023-05-17 08:08] LABS: BILIRUBIN,TOTAL 0.6 mg/dL (0.2-1)
[2023-05-17 08:10] LABS: TOT PROT 6.4 g/dl (6.4-8.2)
[2023-05-17] MEDS ORDERED: APIXABAN 5 MG TABLET ONE (09:10)
[2023-05-17] MEDS ORDERED: CARVEDILOL 25 MG TABLET (FP) ONE (09:11)
[2023-05-17] MEDS ORDERED: FUROSEMIDE 40 MG TABLET (FP) ONE (14:28)
[2023-05-17] MEDS ORDERED: POTASSIUM CHLORIDE ORAL LIQUID 20 MEQ/15 ML ONE (14:28)
[2023-05-17] MEDS: FUROSEMIDE 40 MG TABLET (FP) PO SCH (14:32)
[2023-05-17] MEDS: POTASSIUM CHLORIDE ORAL LIQUID 20 MEQ/15 ML PO ONE (14:32)
[2023-05-17] MEDS: FUROSEMIDE 40 MG/4 ML INJECTABLE VIAL IVPUSH SCH (17:48)
[2023-05-17] MEDS: LABETALOL HCL 20 MG/4 ML VIAL IVPUSH ONE (21:12)
[2023-05-18] MEDS: guaiFENesin 200 MG/10 ML 10 ML UNIT-DOSE CUPS PO PRN (02:53)
[2023-05-18] MEDS: amLODIPine BESYLATE 5 MG TABLET (FP) PO SCH (09:54)
[2023-05-18] MEDS: PHENOL 177 ML SPRAY BOTTLE MM PRN (13:39)
[2023-05-19] MEDS ORDERED: LEVALBUTEROL HCL 0.31 MG/3 ML VIAL.NEB IH PRN (12:29)
[2023-05-19] MEDS: guaiFENesin/CODEINE 5 ML UNIT-DOSE CUPS PO PRN (15:37)
[2023-05-19] MEDS: AZITHROMYCIN IVPB 500 MG/250 ML BAG IVPB ONE (17:06)
[2023-05-19] MEDS: CEFTRIAXONE 1 GM in DEXTROSE 5%-WATER - 50 ML IVPB SCH (17:06)
[2023-05-19] MEDS: ALBUTEROL SO4 2.5/IPRATROPIUM 0.5 INH SOL 3 ML VIAL.NEB. NEB SCH (20:40)
[2023-05-19] MEDS: BUDESONIDE/FORMETEROL FUMARATE 160/4.5 mcg INHALER IH SCH (22:45)
[2023-05-20] MEDS: ACETAMINOPHEN 325 MG TABLET (FP) PO ONE (02:42)
[2023-05-20] MEDS: metFORMIN HCL 500 MG TABLET (FP) PO SCH (09:39)
[2023-05-20] MEDS: AZITHROMYCIN IVPB 500 MG/250 ML BAG IVPB SCH (11:25)
[2023-05-20] MEDS: INSULIN (LEVEMIR) 100 UNITS/ML UNITS SQ SCH (21:14)
[2023-05-21] MEDS: INSULIN (LEVEMIR) 100 UNITS/ML UNITS SQ SCH (21:10)
[2023-05-22] MEDS ORDERED: DEXTROSE 50%-WATER 25 GM/50 ML DISP.SYRIN ONE (06:13)
[2023-05-22] MEDS: DEXTROSE 50%-WATER - 25 GM/50 ML VIAL IVPUSH ONE (06:18)
[2023-05-22 07:58] LABS: BASO % 0.3 % (0-2.0); EOS % 2.8 % (0-4.5); HEMATOCRIT 33.5 % (32.4-45.2); HEMOGLOBIN 11.3 GM/dL (10.7-15.3); LYMPH % 5.3 % (8-40); MCH 27.6 pg (25.7-33.7); MCHC 33.7 g/dl (32.0-36.0); MONO % 5.7 % (3.8-10.2); NEUT % 85.9 % (42.8-82.8); PLATELET COUNT 163 10^3/uL (134-434); RBC 4.08 M/mm3 (3.60-5.2); RDW 16.6 % (11.6-15.6); WHITE BLOOD COUNT 12.2 K/mm3 (4.0-10.0)
[2023-05-22 08:01] LABS: CHLORIDE 97 mmol/L (98-107); SODIUM 140 mmol/L (136-145)
[2023-05-22 08:09] LABS: ALBUMIN 2.5 g/dl (3.4-5.0); CO2 34 mmol/L (21-32); CREATININE 0.9 mg/dL (0.55-1.3); GLUCOSE,RANDOM 165 mg/dL (74-106); SGPT/ALT 16 U/L (13-61)
[2023-05-22 08:10] LABS: BLOOD UREA NITROGEN 29.6 mg/dL (7-18); CALCIUM 9.7 mg/dL (8.5-10.1)
[2023-05-22 08:11] LABS: BILIRUBIN,TOTAL 0.6 mg/dL (0.2-1); TOT PROT 6.5 g/dl (6.4-8.2)
[2023-05-22 08:12] LABS: ALK PHOS 60 U/L (45-117); SGOT/AST 13 U/L (15-37)
[2023-05-22 08:20] LABS: ANION GAP 9 mmol/L (4-13); POTASSIUM 2.8 mmol/L (3.5-5.1)
[2023-05-22] MEDS: POTASSIUM CHLORIDE TABS 20 MEQ TABLET.ER (FP) PO SCH (11:45)
[2023-05-22] MEDS: POTASSIUM CHLORIDE TABS 20 MEQ TABLET.ER (FP) PO ONE (11:51)
[2023-05-22] MEDS: KCL 10 MEQ IVPB 10 MEQ/100 ML INFUS.BAG IVPB SCH (12:17)
[2023-05-23] MEDS: INSULIN (LEVEMIR) 100 UNITS/ML UNITS SQ SCH (06:33)
[2023-05-23 10:09] LABS: POTASSIUM 3.9 mmol/L (3.5-5.1)
[2023-05-23 10:15] LABS: BLOOD UREA NITROGEN 28.7 mg/dL (7-18); CALCIUM 9.7 mg/dL (8.5-10.1)
[2023-05-23 10:17] LABS: ALBUMIN 2.5 g/dl (3.4-5.0)
[2023-05-23 10:19] LABS: CREATININE 0.9 mg/dL (0.55-1.3)
[2023-05-23 10:20] LABS: TOT PROT 6.4 g/dl (6.4-8.2)
[2023-05-23 10:24] LABS: BILIRUBIN,TOTAL 0.5 mg/dL (0.2-1)
[2023-05-24 08:23] LABS: EOS % 3.7 % (0-4.5); HEMATOCRIT 32.5 % (32.4-45.2); HEMOGLOBIN 10.5 GM/dL (10.7-15.3); LYMPH % 18.6 % (8-40); MCH 26.9 pg (25.7-33.7); MCHC 32.3 g/dl (32.0-36.0); MEAN CELL VOLUME 83.1 fl (80-96); MEAN PLT VOLUME 11.7 fl (7.5-11.1); MONO % 6.4 % (3.8-10.2); NEUT % 70.3 % (42.8-82.8); PLATELET COUNT 166 10^3/uL (134-434); RBC 3.91 M/mm3 (3.60-5.2); RDW 16.6 % (11.6-15.6); WHITE BLOOD COUNT 6.2 K/mm3 (4.0-10.0)
[2023-05-24 08:26] LABS: POTASSIUM 3.9 mmol/L (3.5-5.1)
[2023-05-24 08:34] LABS: CALCIUM 9.4 mg/dL (8.5-10.1)
[2023-05-24 08:35] LABS: ALBUMIN 2.5 g/dl (3.4-5.0); BLOOD UREA NITROGEN 27.7 mg/dL (7-18)
[2023-05-24 08:39] LABS: BILIRUBIN,TOTAL 0.4 mg/dL (0.2-1)
[2023-05-24 08:40] LABS: TOT PROT 6.2 g/dl (6.4-8.2)
[2023-05-24 08:57] VITALS: RESP 18
[2023-05-24 14:08] VITALS: BMI 21.5
[2023-05-24 14:22] VITALS: BP 125/69; PULSE 83; TEMP 98.1
== END 2023-05-24 15:58 | disposition home or self-care (01) | DRG 305 ==
LOC: JER 23:30 → JERBED 05-16 04:57 → J4S 05-17 19:48 → OBSVTOIN 05-18 10:47 → UNDODISIN 05-21 10:40
PROVIDERS: ADMIT Internal Medicine; ATTEND Internal Medicine
DX: I16.0 Hypertensive urgency (principal); I48.19 Other persistent atrial fibrillation; I48.92 Unspecified atrial flutter; I50.32 Chronic diastolic (congestive) heart failure; I48.91 Unspecified atrial fibrillation; E11.65 Type 2 diabetes mellitus with hyperglycemia; E78.00 Pure hypercholesterolemia, unspecified; R55 Syncope and collapse; I27.20 Pulmonary hypertension, unspecified; I25.10 Atherosclerotic heart disease of native coronary artery without angina pectoris; E86.0 Dehydration; D69.6 Thrombocytopenia, unspecified; I08.1 Rheumatic disorders of both mitral and tricuspid valves; I13.0 Hypertensive heart and chronic kidney disease with heart failure and stage 1 through stage 4 chronic kidney disease, or unspecified chronic kidney disease; E11.22 Type 2 diabetes mellitus with diabetic chronic kidney disease; N18.9 Chronic kidney disease, unspecified; Z86.73 Personal history of transient ischemic attack (TIA), and cerebral infarction without residual deficits; Z79.4 Long term (current) use of insulin
CPT/HCPCS: 0241U-QW; 36415; 70450-TC; 71045-TC-FY; 71250-TC; 72125-TC; 80053; 80061; 81003; 82010; 82803; 82962; 83036; 83605; 83735; 83880; 84100; 84484; 85025; 85027; 85610; 85730; 86850; 86900; 86901; 87086; 87186; 87651; 93005; 93010; 93306-TC; 93880-TC; 94640; 94761; 97116-GP; 97161-GP; 99285-25; G0378